=== PATIENT | female | born 1940 | race Caucasian/White ===

== ENCOUNTER 2019-02-13 14:54 | Inpatient (IN) ==
[~2019-02-13 14:54] MED LIST: SODIUM CHLORIDE 0.9% 1000ML 1,000 ML IV ONE
--- NOTE | 2019-02-13 15:14 | History & Physical Report ---
Date of Service February 13, 2019 Assessment & Plan (1) Acute kidney injury: clinically dry will give additional 1 liter bolus then 70cc/hr repeat BMP in the morning monitor UO with hoffmann (2) Rectal bleeding: new occurrence Hb stable at 11 at [facility], it is 10gm here in ED will make NPO after midnight consult Dr. Dorsey to see tomorrow (3) Cirrhosis: ongoing issue on Lasix and Spironolactone will hold these given MARILYN ammonia is 20 bili is 1.0, will get INR in the AM to better determine MELD score has WALDROP according to records will need GI consult, son does not think she has seen GI in [facility]? honestly she appears to be more of a palliative patient she has temporal muscle wasting, profoundly weak and the cirrhosis cannot be fixed unfortunately her son has unclear picture of how sick she really is unsure if it has been explained to him in [facility] (4) Hypotension: likely her baseline BP is in the 90-100 range will monitor closely no signs of shock, lactic acid is 1.4 on admission (5) Asthma: no wheezing, breathing stable on room air continue Advair (6) DM type 2 (diabetes mellitus, type 2): diabetic diet Novolog SS with correction factor 50, no carb coverage for now monitor for hypoglycemia (7) senior care current use of anticoagulant: on Xarelto 20mg daily unclear if she has paroxysmal afib, VTE in past? hold Xarelto for now given rectal bleeding (8) UTI (urinary tract infection): with leukocytosis and some WBC in urine at [place] will start on Rocephin 1gm q24, follow up urine culture from [facility] ED (9) Hypothyroidism: (10) CAD (coronary artery disease): (11) HTN (hypertension): (12) Neuropathy: History of Present Illness Chief Complaint: My backside hurts Primary Care Provider: NO PCP 79 yo female with history of WALDROP causing cirrhosis, CAD, CHF, neuropathy, hypothyroidism and anxiety who was sent to [facility] from [place] ED after she presented their the morning of 02/13 with reported rectal bleeding that was a new issue. Majority of the recent history obtained from records from the ED as well as from her son at the bedside. She is not a permanent resident of a SNF, she normally lives with her son. She has been in a SNF due to weakness and need for rehab, she went there over a week ago after being hospitalized at [place]. Prior to this visit all her care has been at [place] with the [facility] system. The son knows that she has cirrhosis due to fatty liver disease. She has had numerous paracentesis in the past as well as right sided thoracentesis for pleural effusion likely related to the cirrhosis. He says that the patient was doing very poorly the past few weeks. She has been getting weaker, not eating well, not drinking much. He said her care was inadequate at the SNF in his opinion and he was going to get her out of the SNF this morning and take her home but she had reported rectal bleeding. He says that over the past year her health has declined, in the past few months it has dramatically declined. He says he is not ready to lose his mom and he gets choked up talking about it. Asked why he requested a transfer to [facility] since her care has always been at [place] and he said he wanted her to have best care possible, was not pleased with the care she had with [facility]. She has no history of GI bleeding at least to the son's knowledge. The patient denies any abdominal pain and she never vomited. She c/o pain in her backside related to some sacral wounds. She denies any chest pain/pressure, denies dyspnea, denies fever/chills. She admits that she does not eat or drink much, very poor appetite. She was hypotensive in the ED at [place]. She was given a one liter bolus. She had a leukocytosis, Hb was 11, Cr was up at 2 compared to baseline of 1, Na down at 129. CT head was normal. Possible UTI on UA, cul ture was sent. They requested transfer to [facility]. I requested that she be evaluated in the ED, unsure if she would need ICU or PCU. Once here in our ED her BP was improved in the 90-100 systolic range. It was clear that she was cirrhotic, likely pressures always low. She was in no distress. Lactic acid was normal, Hb was 10. She was deemed appropriate for PCU status and was admitted. Allergies Allergy/AdvReac Type Severity Reaction Status Date / Time anastrozole [From Arimidex] Allergy Unknown FAMILY Verified 02/13/19 15:44 UNSURE OF REACTION atorvastatin [From Lipitor] Allergy Unknown FAMILY Verified 02/13/19 15:44 UNSURE OF REACTION metformin Allergy Unknown FAMILY Verified 02/13/19 15:44 UNSURE OF REACTION oxycodone Allergy Unknown FAMILY Verified 02/13/19 15:44 UNSURE OF REACTION pantoprazole [From Protonix] Allergy Unknown FAMILY Verified 02/13/19 15:44 UNSURE OF REACTION rosuvastatin [From Crestor] Allergy Unknown FAMILY Verified 02/13/19 15:44 UNSURE OF REACTION simvastatin [From Zocor] Allergy Unknown FAMILY Verified 02/13/19 15:44 UNSURE OF REACTION ticagrelor [From Brilinta] Allergy Unknown FAMILY Verified 02/13/19 15:44 UNSURE OF REACTION Home Medications Home Medications Medication Instructions Recorded Confirmed Type acetaminophen [Tylenol] 650 mg PO Q4 PRN 02/13/19 02/13/19 History calcium carbonate-vitamin D3 1 tab PO DAILY 02/13/19 02/13/19 History [Calcium 600 + D(3)] carvedilol 3.125 mg PO BID 02/13/19 02/13/19 History cyanocobalamin (vitamin B-12) 1,000 mcg IM MONTHLY 02/13/19 02/13/19 History diclofenac sodium [Voltaren] 2 g TOPICAL BID PRN 02/13/19 02/13/19 History diphenhydramine-acetaminophen 2 tab PO HS PRN 02/13/19 02/13/19 History [Tylenol PM Extra Strength] docusate sodium 100 mg PO BID 02/13/19 02/13/19 History duloxetine [Cymbalta] 60 mg PO DAILY 02/13/19 02/13/19 History fenofibrate nanocrystallized 145 mg PO DAILY 02/13/19 02/13/19 History fluticasone propion-salmeterol 1 inh INHALATION BID 02/13/19 02/13/19 History [Advair Diskus] fluticasone propionate [Flonase 1 spray INTRANASAL DAILY 02/13/19 02/13/19 History Allergy Relief] furosemide [Lasix] 40 mg PO DAILY 02/13/19 02/13/19 History gabapentin 300 mg PO BID 02/13/19 02/13/19 History gabapentin 600 mg PO HS 02/13/19 02/13/19 History levothyroxine 150 mcg PO DAILY 02/13/19 02/13/19 History loratadine 10 mg PO DAILY PRN 02/13/19 02/13/19 History lorazepam [Ativan] 0.5 mg PO Q12 PRN 02/13/19 02/13/19 History nitroglycerin [Nitrostat] 0.4 mg SUBLINGUAL DIRECTED PRN 02/13/19 02/13/19 History potassium chloride 10 meq PO DAILY 02/13/19 02/13/19 History rivaroxaban [Xarelto] 20 mg PO PM 02/13/19 02/13/19 History spironolactone 200 mg PO DAILY 02/13/19 02/13/19 History Past Med/Surg History Medical History Arthritis Asthma CAD (coronary artery disease) DM type 2 (diabetes mellitus, type 2) H/O myocardial infarction, greater than 8 weeks HTN (hypertension) Heart failure Hypothyroidism WALDROP (nonalcoholic steatohepatitis) Neuropathy Surgical History S/P cholecystectomy S/P hysterectomy S/P left mastectomy Family History Other Diabetes Hypertension Social History Preferred Language: Surinamese Communication Ability: 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 Beliefs That Will Affect Care: None Current Living Situation: Family Current Living Situation Comment: lives with son Other Information That Helps Us Care for You: No Feels Safe at Home: Yes Safety Concerns: Feels Safe At This Time Smoking Status: Former smoker Hx Alcohol Use: No Hx Substance Use: No Review of Systems Review of Systems: All systems reviewed & are unremarkable except as noted in HPI & below Constitutional: + fatigue, + weakness and + anorexia; no fever, no chills and no sweats Respiratory: no cough, no dyspnea and no wheezing Cardiovascular: + edema; no chest pain, no palpitations and no syncope Gastrointestinal: + early satiety and + blood in stools; no abdominal pain, no nausea, no vomiting, no constipation, no diarrhea/loose stools and no melena Genitourinary: no dysuria Musculoskeletal: + back pain and + joint pain (diffuse) Integumentary: + skin ulcer (reported ulcers on sacrum) Neurologic: + confusion Psychiatric: + confusion and + hallucinations (reaching out for things) Physical Exam Constitutional: well developed, + cachectic (temporal muscle wasting), + frail appearing, cooperative and + malnourished; not in distress and not diaphoretic Eyes: PERRL, conjunctivae normal, anicteric sclerae ENMT: external ear and nose normal, oropharynx normal Neck: trachea midline, no thyromegaly Respiratory: normal respiratory effort, lungs clear to auscultation (decreased in bases) Cardiovascular: Rate/Rhythm: regular rate and regular rhythm Heart Sounds: normal S1 and normal S2; no murmur Extremities: normal capillary refill and + edema Gastrointestinal (Abdomen): Inspection/Auscultation: + abdomen distended and normal bowel sounds Percussion/Palpation: abdomen soft, + ascites and + tympanic to percussion; abdomen nontender Musculoskeletal: Head/Neck/Chest: normocephalic and head atraumatic Extremities: + limited ROM of extremities, + abnormal strength (cannot stand, cannot transfer independently) and + muscle atrophy Skin: no rashes, warm and dry Neurologic: patellar DTR's 2+ bilat, sensation intact and PERRL, EOMI, accommodation nl, no face palsy, no dysarthria Psychiatric: Orientation: alert, oriented to person and cooperative; + not oriented to place and + not oriented to time Hallucinations: + visual hallucinations (reaching out for things) Cognition: + recent memory not i ntact Estimated Intelligence: + below average estimated intelligence Lymphatic: no cervical or axillary lymphadenopathy Results & Data Vital Signs (Past 12 Hours) Vital Signs Temp Pulse Resp BP Pulse Ox 02/13/19 15:01 36.5 C 63 16 109/59 L 94 Laboratory Results Laboratory Results - last 24 hr 02/13/19 02/13/19 02/13/19 16:51 16:51 16:52 WBC 15.19 H RBC 3.59 L Hgb 10.4 L Hct 31.2 L MCV 86.9 MCH 29.0 MCHC 33.3 RDW Std Deviation 48.0 H RDW Coeff of Mariama 15.1 H Plt Count 121 L MPV 9.4 Immature Gran % (Auto) 1.9 Neut % (Auto) 78.2 Lymph % (Auto) 4.1 [place] % (Auto) 14.0 Eos % (Auto) 1.7 Baso % (Auto) 0.1 Immature Gran # (Auto) 0.29 H Neut # (Auto) 11.87 H Lymph # (Auto) 0.62 L [place] # (Auto) 2.13 H Eos # (Auto) 0.26 Baso # (Auto) 0.02 Sodium 131 L Potassium 4.7 Chloride 101 Carbon Dioxide 22 Anion Gap 8.0 BUN 62 H Creatinine 2.10 H Est Cr Clr Drug Dosing 19.1 Est GFR ( Amer) 25.3 Est GFR (Non-Af Amer) 21.8 BUN/Creatinine Ratio 29.5 H Glucose 95 POC Glucose Lactate 1.4 Calcium 9.3 Total Bilirubin 1.0 AST 11 L ALT 7 L Alkaline Phosphatase 71 Ammonia Troponin I < 0.015 Total Protein 4.6 L Albumin 1.7 L Globulin 2.9 Albumin/Globulin Ratio 0.6 L Nasal Screen MRSA (PCR) 02/13/19 02/13/19 02/13/19 18:01 18:19 20:20 WBC RBC Hgb Hct MCV MCH MCHC RDW Std Deviation RDW Coeff of Mariama Plt Count MPV Immature Gran % (Auto) Neut % (Auto) Lymph % (Auto) [place] % (Auto) Eos % (Auto) Baso % (Auto) Immature Gran # (Auto) Neut # (Auto) Lymph # (Auto) [place] # (Auto) Eos # (Auto) Baso # (Auto) Sodium Potassium Chloride Carbon Dioxide Anion Gap BUN Creatinine Est Cr Clr Drug Dosing Est GFR ( Amer) Est GFR (Non-Af Amer) BUN/Creatinine Ratio Glucose POC Glucose 76 69 L* Lactate Calcium Total Bilirubin AST ALT Alkaline Phosphatase Ammonia 20.0 Troponin I Total Protein Albumin Globulin Albumin/Globulin Ratio Nasal Screen MRSA (PCR) 02/13/19 02/13/19 20:44 Unknown WBC RBC Hgb Hct MCV MCH MCHC RDW Std Deviation RDW Coeff of Mariama Plt Count MPV Immature Gran % (Auto) Neut % (Auto) Lymph % (Auto) [place] % (Auto) Eos % (Auto) Baso % (Auto) Immature Gran # (Auto) Neut # (Auto) Lymph # (Auto) [place] # (Auto) Eos # (Auto) Baso # (Auto) Sodium Potassium Chloride Carbon Dioxide Anion Gap BUN Creatinine Est Cr Clr Drug Dosing Est GFR ( Amer) Est GFR (Non-Af Amer) BUN/Creatinine Ratio Glucose POC Glucose 95 Lactate Calcium Total Bilirubin AST ALT Alkaline Phosphatase Ammonia Troponin I Total Protein Albumin Globulin Albumin/Globulin Ratio Nasal Screen MRSA (PCR) Positive A Code Status & VTE Plan Code Status Full code, discussed with patient who stated her wishes and confirmed by her son VTE Prophylaxis Plan VTE Prophylaxis will be ordered: Yes Reason for no VTE drug order: Contraindicated (rectal bleeding) PG Care Time/CCT Total # of Minutes Spent Total Time Spent: 80 Total Time Spent with Patient: Total time spent is greater than 50% in coordination of care (as documented) at patient's floor/unit and/or counseling patient:
[2019-02-13 17:02] LABS: Hematocrit (blood only) 31.2 % (37-47); Hemoglobin 10.4 g/dL (12.0-16.0); Mean Corpuscular Hgb Conc 33.3 g/dL (32-36); Mean Corpuscular Volume 86.9 fL (80-100); Mean Platelet Volume 9.4 fL (7.4-10.4); Platelet Count 121 K/uL (130-400); RDW Coefficient of Variation 15.1 % (11.5-14.5); Red Blood Count 3.59 M/uL (4.2-5.4); White Blood Count 15.19 K/uL (4.8-10.8)
[2019-02-13 17:19] LABS: Alanine Aminotransferase 7 U/L (12-78); Albumin Level 1.7 gm/dl (3.4-5.0); Aspartate Aminotransferase 11 U/L (15-37); BUN Creatinine Ratio 29.5 (10-20); Blood Urea Nitrogen 62 mg/dl (7-18); Calcium 9.3 mg/dl (8.5-10.1); Carbon Dioxide 22 mmol/L (21-32); Chloride 101 mmol/L (98-107); Creatinine Clr Calc Pharmacy 19.1 ml/min; Est GFR (African American) 25.3; Est GFR (Non-African American) 21.8; Glucose 95 mg/dl (70-99); Potassium 4.7 mmol/L (3.5-5.1); Sodium 131 mmol/L (136-145)
[2019-02-13 17:24] LABS: Albumin Globulin Ratio 0.6 (0.9-2); Alkaline Phosphatase 71 U/L (45-117); Globulin 2.9 gm/dl (2.5-4.0); Total Protein 4.6 gm/dl (6.4-8.2); Troponin I < 0.015 ng/ml (0-0.045)
[2019-02-13 17:28] LABS: Basophils # (auto) 0.02 K/uL (0-0.2); Basophils % (auto) 0.1 %; Eosinophils # (auto) 0.26 K/uL (0-0.5); Eosinophils % (auto) 1.7 %; Immature Granulocytes # (auto) 0.29 K/uL (0.00-0.02); Immature Granulocytes % (auto) 1.9 %; Lymphocytes # (auto) 0.62 K/uL (1.2-3.4); Lymphocytes % (auto) 4.1 %; Monocytes # (auto) 2.13 K/uL (0.11-0.59); Neutrophils # (auto) 11.87 K/uL (1.4-6.5); Neutrophils % (auto) 78.2 %
[2019-02-13] MEDS ORDERED: ONDANSETRON INJ 2 MG/ML 2 ML VIAL IV PRN (17:54)
[2019-02-13] MEDS: PATIENT'S ALLERGY INFO NEEDS ENTERED SCH ×3 (17:57→17:59)
[2019-02-13] MEDS: SODIUM CHLORIDE 0.9% 1000ML 1,000 ML IV SCH (18:00)
[2019-02-13] MEDS: DEXTROSE 50% 50 ML SYRINGE IV PRN (20:30)
[2019-02-13] MEDS ORDERED: CARBOHYDRATES FOR HYPOGLYCEMIA PO PRN ×2 (20:30→21:30)
[2019-02-13] MEDS ORDERED: GLUCAGON FOR INJ 1 MG VIAL IM PRN (20:30)
[2019-02-13] MEDS ORDERED: GLUCOSE 10 TABS/TUBE PO PRN ×2 (20:30→21:30)
[2019-02-13] MEDS ORDERED: GLUCOSE 40% GEL 15 GM TUBE PO PRN ×2 (20:30→21:30)
[2019-02-13] MEDS ORDERED: GLUCAGON FOR INJ 1 MG VIAL SQ PRN (21:30)
[2019-02-13] MEDS ORDERED: DEXTROSE 50% 50 ML SYRINGE IV PRN (21:30)
[2019-02-13] MEDS: FLUTICASONE/SALMETEROL 250/50 (ADVAIR) 14 PUFF/1 INHALER INH SCH (21:34)
[2019-02-13] MEDS: GABAPENTIN 600 MG TAB PO SCH (21:34)
[2019-02-13] MEDS: INSULIN ASPART 100 UNITS/ML 3 ML PEN SC SCH (21:35)
[2019-02-13] MEDS: cefTRIAXone SODIUM 1,000 MG in DEXTROSE 5% 50 ML IV SCH (21:48)
[2019-02-14 00:57] LABS: Hematocrit (blood only) 35.8 % (37-47); Hemoglobin 12.1 g/dL (12.0-16.0)
[2019-02-14] MEDS: LEVOTHYROXINE SODIUM 150 MCG TABLET PO SCH (06:31)
[2019-02-14 07:44] LABS: Basophils # (auto) 0.01 K/uL (0-0.2); Eosinophils % (auto) 1.7 %; Hemoglobin 12.2 g/dL (12.0-16.0); Immature Granulocytes # (auto) 0.29 K/uL (0.00-0.02); Immature Granulocytes % (auto) 1.3 %; Lymphocytes # (auto) 0.68 K/uL (1.2-3.4); Lymphocytes % (auto) 2.9 %; Mean Corpuscular Hemoglobin 29.3 pg (25-34); Mean Corpuscular Hgb Conc 33.9 g/dL (32-36); Mean Corpuscular Volume 86.3 fL (80-100); Mean Platelet Volume 9.2 fL (7.4-10.4); Monocytes # (auto) 2.53 K/uL (0.11-0.59); Monocytes % (auto) 10.9 %; Neutrophils # (auto) 19.28 K/uL (1.4-6.5); Neutrophils % (auto) 83.2 %; Platelet Count 147 K/uL (130-400); RDW Coefficient of Variation 15.3 % (11.5-14.5); RDW Standard Deviation 48.8 fL (36.4-46.3); Red Blood Count 4.17 M/uL (4.2-5.4); White Blood Count 23.19 K/uL (4.8-10.8)
[2019-02-14 07:47] LABS: INR 1.3 (0.9-1.1); Prothrombin Time 13.5 Seconds (9.0-12.0)
--- NOTE | 2019-02-14 08:10 | Hospitalist Progress Note ---
Date of Service February 14, 2019 Assessment & Plan (1) Leukocytosis: Patient continues have leukocytosis. Concern that source may perhaps be either infected ascitic fluid, or UTI. Will obtain procalcitonin. Procalcitonin may be falsely elevated due to elevated creatinine. Will obtain ultrasound of abdomen. May perhaps consult interventional radiology for paracentesis. Awaiting input from gastroenterology (2) Acute kidney injury: This is a 70-year-old female with multiple comorbidities, her main issue is a cirrhosis. This admission is likely complication of her cirrhosis. Patient was admitted because she had acute kidney injury. Her creatinine was above 2. Currently repeating BMP. Results are still pending WILL CONTINUE IVF monitor UO with hoffmann (3) Rectal bleeding: new occurrence Hemoglobin has been relatively stable. awaiting input from GI. (4) Cirrhosis: honestly she appears to be more of a palliative patient she has temporal muscle wasting, profoundly weak and the cirrhosis cannot be fixed unfortunately her son has unclear picture of how sick she really is unsure if it has been explained to him in [facility] system Will discuss with son about possibly obtaining a palliative care consult. (5) Hypotension: likely her baseline BP is in the 90-100 range will monitor closely no signs of shock, lactic acid is 1.4 on admission may consider adding midodrine. (6) Asthma: no wheezing, breathing stable on room air continue Advair (7) DM type 2 (diabetes mellitus, type 2): diabetic diet Novolog SS with correction factor 50, no carb coverage for now monitor for hypoglycemia (8) senior care current use of anticoagulant: on Xarelto 20mg daily unclear if she has paroxysmal afib, VTE in past? hold Xarelto for now given rectal bleeding (9) UTI (urinary tract infection): with leukocytosis and some WBC in urine at [place] will start on Rocephin 1gm q24, follow up urine culture from [place] ED (10) Hypothyroidism: Patient on levothyroxine 150 mg p.o. daily (11) CAD (coronary artery disease): Patient only takes carvedilol fenofibrate Xarelto. Currently medications are on hold due to rectal bleeding and low blood pressure (12) HTN (hypertension): BP has rito low. Will monitor (13) Neuropathy: Patient complaint of bilateral lower extremity pain. Patient cannot elaborate. Patient appears to be lethargic so will continue to monitor this and will hold off giving additional pain medication which could make patient more lethargic. Subjective This is a pleasant 79-year-old female with history of cirrhosis. Patient appears to be lethargic and confused. Patient does awaken with verbal stimuli. But does not provide a well detailed history. Patient states that she has some pain in her feet but cannot elaborate. It appears patient does not know where she is either as she has been questioned where she is that she states she is in the house or hosp- but then stops talking and closes her eyes. Unsure if she is trying to say hospital. Review of Systems Review of Systems: Unobtainable due to reduced consciousness Physical Exam Physical Exam: Constitutional: well developed, + cachectic (temporal muscle wasting), + frail appearing, cooperative and + malnourished; not in distress and not diaphoretic Eyes: PERRL, conjunctivae normal, anicteric sclerae ENMT: external ear and nose normal, oropharynx normal Neck: trachea midline, no thyromegaly Respiratory: normal respiratory effort, lungs clear to auscultation (decreased in bases) Cardiovascular: Rate/Rhythm: regular rate and regular rhythm Heart Sounds: normal S1 and normal S2; no murmur Extremities: normal capillary refill and + edema Gastrointestinal (Abdomen): Inspection/Auscultation: + abdomen distended and normal bowel sounds Percussion/Palpation: abdomen soft, + ascites and + tympanic to percussion; abdomen nontender Musculoskeletal: Head/Neck/Chest: normocephalic and head atraumatic Extremities: + limited ROM of extremities, + abnormal strength (cannot stand, cannot transfer independently) and + muscle atrophy Skin: no rashes, warm and dry Neurologic: patellar DTR's 2+ bilat, sensation intact and PERRL, EOMI, accommodation nl, no face palsy, no dysarthria Psychiatric: Orientation: alert, oriented to person and cooperative; + not oriented to place and + not oriented to time Cognition: + recent memory not intact Estimated Intelligence: + below average estimated intelligence Lymphatic: no cervical or axillary lymphadenopathy Results & Data Vital Signs (Past 12 Hours) Vital Signs Temp Pulse Pulse Resp BP Pulse Ox 02/14/19 07:53 36.7 C 77 21 90/52 L 99 02/14/19 03:17 36.7 C 71 17 87/50 L 96 02/14/19 00:00 64 11/03/19 23:34 36.3 C L 70 13 96/56 L 98 PG Care Time/CCT Total # of Minutes Spent Total Time Spent with Patient: Total time spent is greater than 50% in coordination of care (as documented) at patient's floor/unit and/or counseling patient:
[2019-02-14 08:15] LABS: BUN Creatinine Ratio 28.9 (10-20); Calcium 9.8 mg/dl (8.5-10.1); Creatinine Clr Calc Pharmacy 18.6 ml/min; Est GFR (African American) 25.3; Est GFR (Non-African American) 21.8; Potassium 4.8 mmol/L (3.5-5.1)
[2019-02-14 08:18] LABS: Albumin Globulin Ratio 0.6 (0.9-2); Bilirubin,Total 1.1 mg/dl (0.2-1); Globulin 3.4 gm/dl (2.5-4.0); Total Protein 5.4 gm/dl (6.4-8.2)
[2019-02-14] MEDS: INSULIN ASPART 100 UNITS/ML 3 ML PEN SC SCH ×4 (08:40→20:46)
--- NOTE | 2019-02-14 09:05 | Gastrointestinal Consultation ---
Date of Consultation February 14, 2019 Assessment & Plan (1) Cirrhosis: MELD 21. Receives care from [facility]. Bleak overall medical picture. -US pending to assess ascites -Please obtain external GI records -2 gm sodium diet -Continue Lasix & Aldactone as tolerated in the setting of hypotension and likely infection -I do not believe that we can offer different services than her primary GI at this point. She should continue to follow-up with them as an outpatient should it be decided to continue with conventional medical treatment. -Given her other medical comorbidities, advanced age, ineligibility for extensive hepatology intervention, and given cirrhosis is a progressive c ondition that will not improve, would strongly urge patient's son to consider a palliative care consult in effort to prioritize the quality of life for this patient. (2) Rectal bleeding: H/H stable at 12.0/36.0. On oral anticoagulation at home. No records of previous endoscopic evaluation available. No upper GI bleeding. -Given WBC count of 23,000 and hypotension, would defer endoscopic evaluation until her possible infection can be addressed. I would request that we please obtain her previous endoscopic evaluations that have likely been performed for variceal assessment. Continue to monitor H/H closely and monitor for large volume active GI bleeding. We will continue to reassess and react as appropriate with respect to her medical comorbidities. Thank you for allowing us to participate in the care of this patient. If you should have any further questions or concerns, do not hesitate to contact us at [phone] or [phone]. Present on Admission?: Yes Supervising Physician Co-Signing Physician Notes Agree with JONELLE Bhakta Gen: Chronic ill-appearing, sedated, but arousable Abd: Soft, NT, ND Continue current therapy and supportive care Consider palliative care consult. History of Present Illness Reason for Consultation: Cirrhosis, rectal bleeding Attending Physician: Taran Funes History of Present Illness Patient is a 79 yo female with a PMH of HLD, DM2, CAD, hypothyroidism, chronic oral anticoagulation with unclear reason why, and reported WALDROP cirrhosis. The patient was laterally transferred from a [facility] facility to [facility] at the request of her son. The patient's son is not pres ent during my evaluation today and the limited information obtained has been from records and chart review. It appears that the patient has been in a SNF recently due to weakness. She had a hemoglobin of 11 gm at [facility] and it was noted to be 10 gm upon arrival to [facility]. Her current H/H is now 12/36.0. She sees GI in [place] for her [place] cirrhosis. I do not have outpatient records but it is noted in the chart that she requires frequent paracentesis. She appears to be managed on Aldactone 200 mg daily & Lasix 40 mg daily. Her ammonia is within normal limits, bili is 1.1, INR 1.3, LFTs wnl, WBC count is 23,190, she is hypotensive, with a suspected positive UA (culture pending). Her current MELD score is 21. GI has been consulted for cirrhosis & rectal bleeding. The patient reportedly has had bright red blood per rectum. I do not have records of her outpatient notes or endoscopies. The patient is not oriented appropriately. She appears chronically ill. She has temporal wasting. She is unable to provide me any complaints, history, or further information. She has mild ascites noted on exam with BLLE edema. An abdominal US is pending. Reportedly she lives with her son. Allergies Allergy/AdvReac Type Severity Reaction Status Date / Time anastrozole [From Arimidex] Allergy Unknown FAMILY Verified 02/13/19 15:44 UNSURE OF REACTION atorvastatin [From Lipitor] Allergy Unknown FAMILY Verified 02/13/19 15:44 UNSURE OF REACTION metformin Allergy Unknown FAMILY Verified 02/13/19 15:44 UNSURE OF REACTION oxycodone Allergy Unknown FAMILY Verified 02/13/19 15:44 UNSURE OF REACTION pantoprazole [From Protonix] Allergy Unknown FAMILY Verified 02/13/19 15:44 UNSURE OF REACTION rosuvastatin [From Crestor] Allergy Unknown FAMILY Verified 02/13/19 15:44 UNSURE OF REACTION simvastatin [From Zocor] Allergy Unknown FAMILY Verified 02/13/19 15:44 UNSURE OF REACTION ticagrelor [From Brilinta] Allergy Unknown FAMILY Verified 02/13/19 15:44 UNSURE OF REACTION Home Medications Home Medications Medication Instructions Recorded Confirmed Type acetaminophen [Tylenol] 650 mg PO Q4 PRN 02/13/19 02/13/19 History calcium carbonate-vitamin D3 1 tab PO DAILY 02/13/19 02/13/19 History [Calcium 600 + D(3)] carvedilol 3.125 mg PO BID 02/13/19 02/13/19 History cyanocobalamin (vitamin B-12) 1,000 mcg IM MONTHLY 02/13/19 02/13/19 History diclofenac sodium [Voltaren] 2 g TOPICAL BID PRN 02/13/19 02/13/19 History diphenhydramine-acetaminophen 2 tab PO HS PRN 02/13/19 02/13/19 History [Tylenol PM Extra Strength] docusate sodium 100 mg PO BID 02/13/19 02/13/19 History duloxetine [Cymbalta] 60 mg PO DAILY 02/13/19 02/13/19 History fenofibrate nanocrystallized 145 mg PO DAILY 02/13/19 02/13/19 History fluticasone propion-salmeterol 1 inh INHALATION BID 02/13/19 02/13/19 History [Advair Diskus] fluticasone propionate [Flonase 1 spray INTRANASAL DAILY 02/13/19 02/13/19 History Allergy Relief] furosemide [Lasix] 40 mg PO DAILY 02/13/19 02/13/19 History gabapentin 300 mg PO BID 02/13/19 02/13/19 History gabapentin 600 mg PO HS 02/13/19 02/13/19 History levothyroxine 150 mcg PO DAILY 02/13/19 02/13/19 History loratadine 10 mg PO DAILY PRN 02/13/19 02/13/19 History lorazepam [Ativan] 0.5 mg PO Q12 PRN 02/13/19 02/13/19 History nitroglycerin [Nitrostat] 0.4 mg SUBLINGUAL DIRECTED PRN 02/13/19 02/13/19 History potassium chloride 10 meq PO DAILY 02/13/19 02/13/19 History rivaroxaban [Xarelto] 20 mg PO PM 02/13/19 02/13/19 History spironolactone 200 mg PO DAILY 02/13/19 02/13/19 History Patient History Family History Other Diabetes Hypertension Social History Preferred Language: Welsh Communication Ability: Effective 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 Operator 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: No Beliefs That Will Affect Care: None Current Living Situation: Family Current Living Situation Comment: lives with son Other Information That Helps Us Care for You: No Feels Safe at Home: Yes Safety Concerns: Feels Safe At This Time Smoking Status: Former smoker Hx Alcohol Use: No Hx Substance Use: No Review of Systems Review of Systems: Unobtainable due to cognitive status Physical Exam Constitutional: + ill appearing and + frail appearing temporal wasting Eyes: + anicteric sclerae Neck: normal visual inspection Respiratory: no respiratory distress and no labored breathing Auscultation: lungs clear to auscultation bilaterally Cardiovascular: Rate/Rhythm: regular rate and regular rhythm Gastrointestinal (Abdomen): Inspection/Auscultation: normal bowel sounds Percussion/Palpation: + abdomen tender and + ascites Musculoskeletal: BLLE edema Skin: scattered ecchymosis Neurologic: confused Psychiatric: Orientation: alert not oriented appropriately Results & Data Vital Signs (Past 12 Hours) Vital Signs Temp Pulse Pulse Resp BP Pulse Ox 02/14/19 08:52 77 02/14/19 07:53 36.7 C 77 21 90/52 L 99 02/14/19 03:17 36.7 C 71 17 87/50 L 96 02/14/19 00:00 64 02/13/19 23:34 36.3 C L 70 13 96/56 L 98 PG Care Time/CCT Total # of Minutes Spent Total Time Spent with Patient: Total time spent is greater than 50% in coordination of care (as documented) at patient's floor/unit and/or counseling patient: (1) Cirrhosis Hepatic cirrhosis type: other cirrhosis Qualified Code(s): K74.69 - Other cirrhosis of liver
[2019-02-14] MEDS: GABAPENTIN 300 MG CAP PO SCH ×2 (10:09→13:54)
[2019-02-14] MEDS: FLUTICASONE/SALMETEROL 250/50 (ADVAIR) 14 PUFF/1 INHALER INH SCH ×2 (10:09→19:53)
[2019-02-14] MEDS: FLUTICASONE PROPIONATE NA SPR 16 GM BTL SCH (10:09)
[2019-02-14] MEDS: DULOXETINE HCL 60 MG CAP PO SCH (10:09)
--- NOTE | 2019-02-14 10:59 | Ultrasound Report ---
US abdomen ltd ascites CLINICAL HISTORY: Ascites evaluation COMPARISON STUDY: No previous studies for comparison. FINDINGS: A four-quadrant abdominal survey was performed. There is moderate ascites. IMPRESSION: Moderate ascites. Electronically signed by: Santo Melara M.D. 02/14/2019 10:58 AM
[2019-02-14] MEDS: SODIUM CHLORIDE 0.9% 1000ML 1,000 ML IV SCH (11:34)
[2019-02-14] MEDS: DEXTROSE 50% 50 ML SYRINGE IV PRN (11:50)
[2019-02-14] MEDS: D5W AND LACTATED RINGERS 1,000 ML IV SCH (12:00)
[2019-02-14] MEDS: GABAPENTIN 600 MG TAB PO SCH (19:46)
[2019-02-14] MEDS: cefTRIAXone SODIUM 1,000 MG in DEXTROSE 5% 50 ML IV SCH (22:15)
[2019-02-15] MEDS: D5W AND LACTATED RINGERS 1,000 ML IV SCH ×2 (01:11→12:41)
[2019-02-15] MEDS: LEVOTHYROXINE SODIUM 150 MCG TABLET PO SCH (06:28)
[2019-02-15] MEDS: FLUTICASONE PROPIONATE NA SPR 16 GM BTL SCH (08:28)
[2019-02-15] MEDS: FLUTICASONE/SALMETEROL 250/50 (ADVAIR) 14 PUFF/1 INHALER INH SCH ×2 (08:28→22:15)
[2019-02-15] MEDS: GABAPENTIN 300 MG CAP PO SCH ×2 (08:28→13:10)
[2019-02-15] MEDS: DULOXETINE HCL 60 MG CAP PO SCH (08:29)
[2019-02-15] MEDS: INSULIN ASPART 100 UNITS/ML 3 ML PEN SC SCH ×4 (08:30→20:08)
[2019-02-15] MEDS: LANSOPRAZOLE 30 MG SOLTAB PO SCH ×2 (09:50→20:08)
--- NOTE | 2019-02-15 10:04 | History & Physical Bridge Note ---
Date of Service February 15, 2019 History & Physical Bridge Note Await results of labs from this AM including CBC, CMP, PT/INR. Pending results, may order a paracentesis with fluid studies to exclude SBP. I would like to review her previous images and fluid studies. Patient is unable to consent/agree to procedures at present, and I would await input from son/palliative care regarding goals of care. I did personally contact [facility] and they will release her records to us if the POA signs a record release. Please obtain this from son when he is present and fax to [facility] (Attention: Murali, STAT request). The phone number is [phone] and they can provide the fax #.
[2019-02-15 11:46] LABS: Hematocrit (blood only) 39.5 % (37-47); Hemoglobin 13.4 g/dL (12.0-16.0); Mean Corpuscular Hemoglobin 29.5 pg (25-34); Mean Corpuscular Hgb Conc 33.9 g/dL (32-36); Mean Platelet Volume 9.3 fL (7.4-10.4); Platelet Count 113 K/uL (130-400); RDW Coefficient of Variation 15.6 % (11.5-14.5); RDW Standard Deviation 49.5 fL (36.4-46.3); Red Blood Count 4.54 M/uL (4.2-5.4); White Blood Count 34.95 K/uL (4.8-10.8)
[2019-02-15 11:47] LABS: Basophils # (auto) 0.04 K/uL (0-0.2); Basophils % (auto) 0.1 %; Eosinophils # (auto) 0.23 K/uL (0-0.5); Eosinophils % (auto) 0.7 %; INR 1.3 (0.9-1.1); Lymphocytes # (auto) 0.62 K/uL (1.2-3.4); Lymphocytes % (auto) 1.8 %; Monocytes # (auto) 1.71 K/uL (0.11-0.59); Monocytes % (auto) 4.9 %; Neutrophils # (auto) 31.65 K/uL (1.4-6.5); Neutrophils % (auto) 90.5 %; Prothrombin Time 12.9 Seconds (9.0-12.0)
[2019-02-15 11:56] LABS: Albumin Globulin Ratio 0.6 (0.9-2); BUN Creatinine Ratio 30.9 (10-20); Bilirubin,Total 1.1 mg/dl (0.2-1); Creatinine Clr Calc Pharmacy 20.8 ml/min; Est GFR (African American) 28.9; Globulin 3.6 gm/dl (2.5-4.0); Potassium 5.1 mmol/L (3.5-5.1); Total Protein 5.6 gm/dl (6.4-8.2)
[2019-02-15] MEDS ORDERED: cefTRIAXone SODIUM 1,000 MG in DEXTROSE 5% 50 ML IV ONE (12:30)
--- NOTE | 2019-02-15 15:08 | Ultrasound Report ---
US paracentesis abd w/image CLINICAL HISTORY: 79 years-old Female presenting with leukocytosis/ ascites. COMPARISON: None. PROCEDURE: The procedure and its risks, benefits, and alternatives were discussed with the patient's healthcare decision maker by telephone (son Camacho Mg), and written informed consent was obtained. A timeout w as performed to confirm patient identity. Limited ultrasound of the abdomen was performed to determine a safe needle entry site, and the site w as marker for paracentesis. The right lower quadrant was prepped and draped in the usual aseptic fashion. 1% Lidocaine was used f or local anesthesia. A paracentesis needle-sheath was inserted into the peritoneal space using ultrasound guidance. The ne edle was removed and the sheath was connected to tubing and a vacuum suction device. A total of 1.9 L of clear yellow ascites was aspirated. The sheath was removed, and a dressing applied. The patient tolerated the procedure well. No immediate complications. IMPRESSION: Ultrasound-guided diagnostic and therapeutic paracentesis with aspiration of 1.9 L of ascites. Electronically signed by: Elvis Rojas M.D. 02/15/2019 3:07 PM
[2019-02-15 15:44] LABS: Albumin Peritoneal Fluid 0.6 g/dl; Glucose Peritoneal Fluid 156 mg/dl
[2019-02-15 15:51] LABS: Amylase Peritoneal Fluid 5 U/L; LDH Peritoneal Fluid 33 U/L; Lipase Peritoneal Fluid < 10 U/L; Total Protein Peritoneal Fluid 1.1 g/dl; Triglyceride Peritoneal Fluid 9 mg/dl
[2019-02-15 16:03] LABS: Appearance Peritoneal Fluid CLEAR; Color Peritoneal Fluid YELLOW; Eosinophils, Fluid 0 %; Lymphocytes, Fluid 8 %; Mono,Macrophage,Mesothelial 26 %; Neutrophils, Fluid 66 %; RBC Peritoneal Fluid (A) < 3000 /uL; WBC Peritoneal Fluid (A) 530 /ul (0-300)
--- NOTE | 2019-02-15 16:17 | Hospitalist Progress Note ---
Date of Service February 15, 2019 Assessment & Plan (1) Leukocytosis: WBC continue to rise despite antibiotics. Patient was currently being treated for UTI with ceftriaxone 1 gr IV daily will increase to 2gr IV daily Patient continues have leukocytosis. Concern that source may perhaps be either infected ascitic fluid (probable spontaneous bacterial peritonitis), or UTI. Procalcitonin is elevated. Procalcitonin may be falsely elevated due to elevated creatinine. U/S of abdomen shows ascitic fluid. will obtain consult with interventional radiology for paracenthesis and obtain culture. The issue is that patient has received antibiotics so cultures may be falsely negative Gastro has been seeing patient and it appears patient has a poor prognosis due to cirrhosis and MELD score of 21. May also consider possiblity of c diff given diarrhea. will order c diff testing. (2) Acute kidney injury: This is a 70-year-old female with multiple comorbidities, her main issue is a cirrhosis. This admission is likely complication of her cirrhosis. Patient was admitted because she had acute kidney injury. Her creatinine was above 2. Has improved to 1.88 (3) Rectal bleeding: new occurrence Hemoglobin has been relatively stable. (4) Cirrhosis: honestly she appears to be more of a palliative patient she has temporal muscle wasting, profoundly weak and the cirrhosis cannot be fixed unfortunately her son has unclear picture of how sick she really is unsure if it has been explained to him in [facility] Informed son about poor prognosis. will obtain palliative care consult. (5) Hypotension: likely her baseline BP is in the 90-100 range will monitor closely no signs of shock, lactic acid is 1.4 on admission may consider adding midodrine. 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 hold Xarelto for now given rectal bleeding (9) UTI (urinary tract infection): with leukocytosis and some WBC in urine at [place] antibiotics per above. (10) Hypothyroidism: Patient on levothyroxine 150 mg p.o. daily (11) CAD (coronary artery disease): Patient only takes carvedilol fenofibrate Xarelto. Currently medications are on hold due to rectal bleeding and low blood pressure (12) HTN (hypertension): BP has rito low. Will monitor (13) Neuropathy: Patient complaint of bilateral lower extremity pain. Patient cannot elaborate. Patient appears to be lethargic so will continue to monitor this and will hold off giving additional pain medication which could make patient more lethargic. Subjective 79 yo female is lethargic. Review of Systems Review of Systems: Unobtainable due to cognitive status Physical Exam Physical Exam: Constitutional: well developed, + cachectic (temporal muscle wasting), + frail appearing; lethargic Eyes: PERRL, conjunctivae normal, anicteric sclerae ENMT: external ear and nose normal, oropharynx normal Neck: trachea midline, no thyromegaly Respiratory: normal respiratory effort, lungs clear to auscultation (decreased in bases) Cardiovascular: Rate/Rhythm: regular rate and regular rhythm Heart Sounds: normal S1 and normal S2; no murmur Extremities: normal capillary refill and + edema Gastrointestinal (Abdomen): + abdomen distended, soft, + ascites and + tympanic to percussion; abdomen nontender Musculoskeletal: Head/Neck/Chest: normocephalic and head atraumatic Extremities: + limited ROM of extremities, + muscle atrophy Skin: no rashes, warm and dry Neurologic: patellar DTR's 2+ bilat, sensation intact and PERRL, EOMI, accommodation nl, no face palsy, no dysarthria Psychiatric: lethargic Lymphatic: no cervical or axillary lymphadenopathy Results & Data Vital Signs (Past 12 Hours) Vital Signs Temp Pulse Pulse Resp BP Pulse Ox 02/15/19 15:20 36.8 C 79 18 106/63 100 02/15/19 11:21 36.3 C L 75 17 100/63 98 02/15/19 07:09 36.4 C L 76 16 113/62 95 PG Care Time/CCT Total # of Minutes Spent Total Time Spent with Patient: Total time spent is greater than 50% in coordination of care (as documented) at patient's floor/unit and/or counseling patient: (1) Cirrhosis Hepatic cirrhosis type: other cirrhosis Qualified Code(s): K74.69 - Other cirrhosis of liver
[2019-02-15] MEDS: ACETAMINOPHEN 325 MG TAB PO PRN (20:06)
[2019-02-15] MEDS: GABAPENTIN 600 MG TAB PO SCH (20:07)
[2019-02-15] MEDS: cefTRIAXone SODIUM 2,000 MG in DEXTROSE 5% 50 ML IV SCH (22:15)
[2019-02-15 23:10] LABS: Cdiff Antigen Positive
[2019-02-15 23:12] LABS: Cdiff Toxin A+B Positive Cdiff Toxin (Negative)
[2019-02-16] MEDS: LORazepam 0.5 MG TAB PO PRN (00:23)
[2019-02-16] MEDS: VANCOMYCIN HCL 125 MG/2.5ML SOLN PO SCH ×2 (00:24→06:55)
[2019-02-16] MEDS: RASPBERRY SYRUP 5 ML UDP PO SCH ×4 (00:24→17:05)
[2019-02-16] MEDS: D5W AND LACTATED RINGERS 1,000 ML IV SCH ×2 (02:44→14:21)
[2019-02-16] MEDS: LEVOTHYROXINE SODIUM 150 MCG TABLET PO SCH (06:55)
[2019-02-16] MEDS ORDERED: cefTRIAXone SODIUM 2,000 MG in DEXTROSE 5% 50 ML IV SCH (09:00)
--- NOTE | 2019-02-16 09:05 | Gastroenterology Progress Note ---
Date of Service February 16, 2019 Assessment & Plan (1) Cirrhosis: With possible SBP. MELD at 21. Today's labs are pending. s/p paracentesis on 02/15 with peritoneal WBCs >500. -Continue Ceftriaxone for possible SBP -Follow-up cytology when it returns -Follow blood & urine cultures -Ammonia has been normal, however given persistent confusion despite treatment for her infectious process, add Xifaxan 550 mg BID. -2 gm sodium restricted diet -Continue Lasix & Aldactone as tolerated in the setting of infection -Given age and medical comorbidities, patient would not be an ideal candidate for hepatology interventions -Agree that patient is more ill than previously understood by son; Palliative care consult pending. -Patient has outpatient GI resources in place at [facility]; still awaiting records from their office. Present on Admission?: Yes (2) C. difficile diarrhea: -Continue Vancomycin 125 mg po q 6 hrs -Contact precautions per protocol Present on Admission?: No Supervising Physician Co-Signing Physician Notes Agree with JONELLE Bhakta Patient is a 79 yo female who is chronically ill and is currently hospitalized for multiple issues including cirrhosis, possible SBP, and rectal bleeding. The patient tested positive for C diff yesterday. She has been started on Vanco 125 mg four times daily. She underwent a paracentesis of ascitic fluid yesterday. 1.9 L were removed, unfortunately the fluid studies are not completely sales representative supervisor of the clinical situation as she was on Ceftriaxone for more than 24 hours prior to the paracentesis. Peritoneal WBC count was >500. The patient is afebrile. Her CBC & metabolic panel are pending this AM. There appears to be a pending palliative care consult as well. Patient is alert, but not appropriately oriented. She does not participate in my review of systems today. She does request water. Review of Systems Review of Systems: Unobtainable due to cognitive status Physical Exam Constitutional: + ill appearing Respiratory: normal respiratory effort Cardiovascular: Rate/Rhythm: regular rate and regular rhythm Gastrointestinal (Abdomen): Percussion/Palpation: + abdomen tender and abdomen soft; no ascites Psychiatric: Orientation: alert Results & Data Vital Signs (Past 12 Hours) Vital Signs Temp Pulse Pulse Resp BP Pulse Ox 02/16/19 07:15 36.3 C L 79 17 100/57 L 95 11/06/19 02:31 36.9 C 77 16 106/57 L 95 02/16/19 00:00 79 02/15/19 23:29 36.4 C L 84 20 90/55 L 94 PG Care Time/CCT Total # of Minutes Spent Total Time Spent with Patient: Total time spent is greater than 50% in coordination of care (as documented) at patient's floor/unit and/or counseling patient: (1) Cirrhosis Hepatic cirrhosis type: other cirrhosis Qualified Code(s): K74.69 - Other cirrhosis of liver
[2019-02-16] MEDS: INSULIN ASPART 100 UNITS/ML 3 ML PEN SC SCH ×4 (09:16→21:48)
[2019-02-16] MEDS ORDERED: MIDODRINE HCL 2.5 MG TAB PO STA (09:31)
--- NOTE | 2019-02-16 09:34 | Hospitalist Progress Note ---
Date of Service February 16, 2019 Assessment & Plan (1) Spontaneous bacterial peritonitis: wbc in peritoneal fluid was elevated. culture negative but patient receiving antibioitcs before cultures were drawn.. patient appears to be improving with antibiotics. will monitor will restart diuretics and place on midodrine. (2) Leukocytosis: WBC continue to rise despite antibiotics. Patient was currently being treated for UTI with ceftriaxone 1 gr IV daily now on 2gr IV daily for SBP. Patient continues have leukocytosis. Procalcitonin is elevated. Removed almost 2 liters of ascitic fluid. The issue is that patient has received antibiotics so cultures may be falsely negative Gastro has been seeing patient and it appears patient has a poor prognosis due to cirrhosis and MELD score of 21. (3) C. difficile diarrhea: Placed on vanco 125 on 02/15 overnight. Increased to 250 overnight. (4) Acute kidney injury: This is a 70-year-old female with multiple comorbidities, her main issue is a cirrhosis. This admission is likely complication of her cirrhosis. Patient was admitted because she had acute kidney injury. Her creatinine was above 2. Has improved to 1.7 (5) Rectal bleeding: new occurrence Hemoglobin has been relatively stable. (6) Cirrhosis: honestly she appears to be more of a palliative patient she has temporal muscle wasting, profoundly weak and the cirrhosis cannot be fixed unfortunately her son has unclear picture of how sick she really is unsure if it has been explained to him in [facility] system Informed son about poor prognosis. will obtain palliative care consult. (7) Hypotension: likely her baseline BP is in the 90-100 range will monitor closely no signs of shock, lactic acid is 1.4 on admission may consider adding midodrine. 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 hold Xarelto for now given rectal bleeding (11) UTI (urinary tract infection): with leukocytosis and some WBC in urine at [place] antibiotics per above. (12) Hypothyroidism: Patient on levothyroxine 150 mg p.o. daily (13) CAD (coronary artery disease): Patient only takes carvedilol fenofibrate Xarelto. Currently medications are on hold due to rectal bleeding and low blood pressure (14) HTN (hypertension): BP has rito low. Will monitor (15) Neuropathy: Patient complaint of bilateral lower extremity pain. Patient cannot elaborate. Patient appears to be lethargic so will continue to monitor this and will hold off giving additional pain medication which could make patient more lethargic. Subjective 79 yo female is more awake today. She appears to be somewhat upset as she does not understand why she is in the hospital. She states nothing is wrong with her. Does not provide more history. Review of Systems Review of Systems: All systems reviewed & are unremarkable except as noted in HPI & below Physical Exam Physical Exam: Constitutional: well developed, + cachectic (temporal muscle wasting), + frail appearing; Eyes: PERRL, conjunctivae normal, anicteric sclerae ENMT: external ear and nose normal, oropharynx normal Neck: trachea midline, no thyromegaly Respiratory: normal respiratory effort, lungs clear to auscultation (decreased in bases) Cardiovascular: Rate/Rhythm: regular rate and regular rhythm Heart Sounds: normal S1 and normal S2; no murmur Extremities: normal capillary refill and + edema Gastrointestinal (Abdomen): + abdomen distended, soft, + ascites and + tympanic to percussion; abdomen nontender Musculoskeletal: Head/Neck/Chest: normocephalic and head atraumatic Extremities: + limited ROM of extremities, + muscle atrophy Skin: no rashes, warm and dry Neurologic: patellar DTR's 2+ bilat, sensation intact and PERRL, EOMI, accommodation nl, no face palsy, no dysarthria Psychiatric: AA OX1 Lymphatic: no cervical or axillary lymphadenopath Results & Data Vital Signs (Past 12 Hours) Vital Signs Temp Pulse Pulse Resp BP Pulse Ox 02/16/19 07:15 36.3 C L 79 17 100/57 L 95 02/16/19 02:31 36.9 C 77 16 106/57 L 95 02/16/19 00:00 79 02/15/19 23:29 36.4 C L 84 20 90/55 L 94 PG Care Time/CCT Total # of Minutes Spent Total Time Spent with Patient: Total time spent is greater than 50% in coordination of care (as documented) at patient's floor/unit and/or counseling patient: (1) Cirrhosis Hepatic cirrhosis type: other cirrhosis Qualified Code(s): K74.69 - Other cirrhosis of liver
[2019-02-16] MEDS: FLUTICASONE PROPIONATE NA SPR 16 GM BTL SCH (10:12)
[2019-02-16] MEDS: FLUTICASONE/SALMETEROL 250/50 (ADVAIR) 14 PUFF/1 INHALER INH SCH ×2 (10:12→21:49)
[2019-02-16] MEDS: SPIRONOLACTONE 100 MG TAB PO SCH (10:26)
[2019-02-16] MEDS: FUROSEMIDE 40 MG TAB PO SCH (10:27)
[2019-02-16] MEDS: GABAPENTIN 300 MG CAP PO SCH ×2 (10:27→14:21)
[2019-02-16] MEDS: DULOXETINE HCL 60 MG CAP PO SCH (10:27)
[2019-02-16] MEDS: LANSOPRAZOLE 30 MG SOLTAB PO SCH ×2 (10:28→21:48)
[2019-02-16 11:28] LABS: Hematocrit (blood only) 35.4 % (37-47); Hemoglobin 11.7 g/dL (12.0-16.0); Mean Corpuscular Hemoglobin 28.8 pg (25-34); Mean Corpuscular Hgb Conc 33.1 g/dL (32-36); Mean Corpuscular Volume 87.2 fL (80-100); RDW Coefficient of Variation 15.8 % (11.5-14.5); Red Blood Count 4.06 M/uL (4.2-5.4); White Blood Count 39.44 K/uL (4.8-10.8)
[2019-02-16 11:37] LABS: Albumin Level 1.8 gm/dl (3.4-5.0); BUN Creatinine Ratio 31.2 (10-20); Calcium 8.5 mg/dl (8.5-10.1); Creatinine Clr Calc Pharmacy 21.2 ml/min; Est GFR (African American) 32.7; Est GFR (Non-African American) 28.2; Potassium 4.4 mmol/L (3.5-5.1)
[2019-02-16 11:40] LABS: Basophils # (auto) 0.03 K/uL (0-0.2); Basophils % (auto) 0.1 %; Eosinophils # (auto) 0.36 K/uL (0-0.5); Eosinophils % (auto) 0.9 %; Immature Granulocytes # (auto) 0.37 K/uL (0.00-0.02); Immature Granulocytes % (auto) 0.9 %; Lymphocytes # (auto) 0.81 K/uL (1.2-3.4); Lymphocytes % (auto) 2.1 %; Mean Platelet Volume 9.4 fL (7.4-10.4); Monocytes # (auto) 1.66 K/uL (0.11-0.59); Monocytes % (auto) 4.2 %; Neutrophils # (auto) 36.21 K/uL (1.4-6.5); Neutrophils % (auto) 91.8 %; Platelet Count 93 K/uL (130-400); Platelet Estimate Decreased (Normal); Toxic Granulation 1+
[2019-02-16 11:43] LABS: Albumin Globulin Ratio 0.5 (0.9-2); Bilirubin,Total 0.9 mg/dl (0.2-1); Globulin 3.3 gm/dl (2.5-4.0); Total Protein 5.1 gm/dl (6.4-8.2)
[2019-02-16] MEDS: RIFAXIMIN 550 MG TABLET PO SCH ×2 (11:45→21:48)
[2019-02-16] MEDS: MIDODRINE HCL 2.5 MG TAB PO SCH ×2 (12:11→16:54)
[2019-02-16] MEDS: VANCOMYCIN HCL 250 MG/5 ML SOLN PO SCH ×2 (12:11→17:05)
--- NOTE | 2019-02-16 15:08 | Palliative Care Consultation ---
Date of Consultation February 16, 2019 Assessment & Plan (1) Goals of care, counseling/discussion: -79 year old female patient with PMH WALDROP causing cirrhosis, CAD, CHF, neuropathy, hypothyroidism and anxiety who was sent to [facility] from [place] [facility] after she presented with reported rectal bleeding. Patient does most of her doctoring at [facility], and was recently admitted there. After hospitalization she went to [facility] for rehab. She then presented to [place] ED and son requested patient to be sent to [facility] instead of [facility]. Upon arrival patient had suspected UTI, elevated creatinine of 2.10, hgb 10, ammonia 20, normal LFTs. INR 1.2. Per record, patient does require intermittent paracenteses. We are still waiting for records from [facility]. GI was consulted here in hospital-- given patient's severe leukocytosis and low BP, suspected SBP, will hold off on any endoscopy. Her hgb is stable and no signs of bleeding. Patient's creatinine is improving, now down to 1.70. MELD score is 21-- indicating 20% mortality in 3 months. Patient's upper body is cachectic, severe muscle wasting, albumin 1.8. She had a paracentesis yesterday with 1.9L removed. She is on abx for possible SBP. Mental status somewhat improved today, but prognosis is guarded at this point. Palliative care is consulted to discuss goals fo care. -Met with patient this morning in room 204. She is awake. States she is in [facility]. When asked why she is in hospital, she stated, "These doctors tell me I'm sick, but I don't believe nothing they say!" Asked her to elaborate, but she did not. Patient adamant that she wants to go home. -Called patient's son, Camacho, and spoke over phone. He states that he is now aware of how ill his mother is, but he is hoping to "get some more time with her." He admits that she is declining as far as her strength and overall condition, but thinks some of her decline is from being in a custodial after last hospitalization. Wesly wants to bring patient home as well. -Talked about goals. Camacho wants to bring patient home despite her increasing needs. he would like to continue to bring patient to hospital when needed, continue paracenteses as needed. he asked about an abdominal catheter for drainage and I stated they are used for palliation most of the time, but have major risk for infection which can be fatal. He verbalized understanding. -We did briefly discuss the option of home hospice care and what that would entail for patient. He was appreciative of the information, but promptly stated they are not ready for that. -Given patient's liver disease, increased weakness and dependence for care, malnourished state, and other comorbidities, her prognosis seems quite poor. I would recommend PT/OT as well as field cane scaler to see patient. GI continues to follow. -Palliative care will continue to follow for supportive care as well. (2) Cirrhosis: Hepatic cirrhosis type: other cirrhosis Qualified Code(s): K74.69 - Other cirrhosis of liver (3) Rectal bleeding: (4) Acute kidney injury: (5) Spontaneous bacterial peritonitis: History of Present Illness Attending Physician: Taran Funes History of Present Illness This 79 year old female patient with PMH WALDROP causing cirrhosis, CAD, CHF, neuropathy, hypothyroidism and anxiety who was sent to [facility] from [place] ED after she presented with reported rectal bleeding. Patient does most of her doctoring at [facility], and was recently admitted there. After hospitalization she went to [facility] for rehab. She then presented to [place] ED and son requested patient to be sent to [facility] instead of [facility]. Upon arrival patient had suspected UTI, elevated creatinine of 2.10, hgb 10, ammonia 20, normal LFTs. INR 1.2. Per record, patient does require intermittent paracenteses. We are still waiting for records from [facility]. GI was consulted here in hospital-- given patient's severe leukocytosis and low BP, suspected SBP, will hold off on any endoscopy. Her hgb is stable and no signs of bleeding. Patient's creatinine is improving, now down to 1.70. MELD score is 21-- indicating 20% mortality in 3 months. Patient's upper body is cachectic, severe muscle wasting, albumin 1.8. She had a paracentesis yesterday with 1.9L removed. She is on abx for possible SBP. Mental status somewhat improved today, but prognosis is guarded at this point. Palliative care is consulted to discuss goals fo care. Thank you kindly for this consult. Palliative care team will follow as needed. Allergies Allergy/AdvReac Type Severity Reaction Status Date / Time anastrozole [From Arimidex] Allergy Unknown FAMILY Verified 02/13/19 15:44 UNSURE OF REACTION atorvastatin [From Lipitor] Allergy Unknown FAMILY Verified 02/13/19 15:44 UNSURE OF REACTION metformin Allergy Unknown FAMILY Verified 02/13/19 15:44 UNSURE OF REACTION oxycodone Allergy Unknown FAMILY Verified 02/13/19 15:44 UNSURE OF REACTION pantoprazole [From Protonix] Allergy Unknown FAMILY Verified 02/13/19 15:44 UNSURE OF REACTION rosuvastatin [From Crestor] Allergy Unknown FAMILY Verified 02/13/19 15:44 UNSURE OF REACTION simvastatin [From Zocor] Allergy Unknown FAMILY Verified 02/13/19 15:44 UNSURE OF REACTION ticagrelor [From Brilinta] Allergy Unknown FAMILY Verified 02/13/19 15:44 UNSURE OF REACTION Home Medications Home Medications Medication Instructions Recorded Confirmed Type acetaminophen [Tylenol] 650 mg PO Q4 PRN 02/13/19 02/13/19 History calcium carbonate-vitamin D3 1 tab PO DAILY 02/13/19 02/13/19 History [Calcium 600 + D(3)] carvedilol 3.125 mg PO BID 02/13/19 02/13/19 History cyanocobalamin (vitamin B-12) 1,000 mcg IM MONTHLY 02/13/19 02/13/19 History diclofenac sodium [Voltaren] 2 g TOPICAL BID PRN 02/13/19 02/13/19 History diphenhydramine-acetaminophen 2 tab PO HS PRN 02/13/19 02/13/19 History [Tylenol PM Extra Strength] docusate sodium 100 mg PO BID 02/13/19 02/13/19 History duloxetine [Cymbalta] 60 mg PO DAILY 02/13/19 02/13/19 History fenofibrate nanocrystallized 145 mg PO DAILY 02/13/19 02/13/19 History fluticasone propion-salmeterol 1 inh INHALATION BID 02/13/19 02/13/19 History [Advair Diskus] fluticasone propionate [Flonase 1 spray INTRANASAL DAILY 02/13/19 02/13/19 History Allergy Relief] furosemide [Lasix] 40 mg PO DAILY 02/13/19 02/13/19 History gabapentin 300 mg PO BID 02/13/19 02/13/19 History gabapentin 600 mg PO HS 02/13/19 02/13/19 History levothyroxine 150 mcg PO DAILY 02/13/19 02/13/19 History loratadine 10 mg PO DAILY PRN 02/13/19 02/13/19 History lorazepam [Ativan] 0.5 mg PO Q12 PRN 02/13/19 02/13/19 History nitroglycerin [Nitrostat] 0.4 mg SUBLINGUAL DIRECTED PRN 02/13/19 02/13/19 History potassium chloride 10 meq PO DAILY 02/13/19 02/13/19 History rivaroxaban [Xarelto] 20 mg PO PM 02/13/19 02/13/19 History spironolactone 200 mg PO DAILY 02/13/19 02/13/19 History Patient History Family History Other Diabetes Hypertension Social History Preferred Language: Northern Irish Communication Ability: Effective 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: No Beliefs That Will Affect Care: None Current Living Situation: Family Current Living Situation Comment: lives with son Other Information That Helps Us Care for You: No Feels Safe at Home: Yes Safety Concerns: Feels Safe At This Time Smoking Status: Former smoker Hx Alcohol Use: No Hx Substance Use: No Review of Systems Constitutional: + weakness Respiratory: no dyspnea Cardiovascular: + edema; no chest pain Gastrointestinal: no abdominal pain Physical Exam Constitutional: + ill appearing and + cachectic ENMT: external ear and nose normal, oropharynx normal Respiratory: normal respiratory effort, lungs clear to auscultation Auscultation: + diminished lung sounds Cardiovascular: Rate/Rhythm: regular rate and regular rhythm Extremities: + edema (trace BLE) Gastrointestinal (Abdomen): Inspection/Auscultation: + abdomen distended and normal bowel sounds Percussion/Palpation: + abdomen tender Neurologic: moves all extremities and awake Psychiatric: Orientation: oriented to person, oriented to place and oriented to time Insight: + poor insight Results & Data Vital Signs (Past 12 Hours) Vital Signs Temp Pulse Resp BP Pulse Ox 02/16/19 10:38 36.4 C L 82 22 95/53 L 98 02/16/19 07:15 36.3 C L 79 17 100/57 L 95 Time Spent Midlevel 70 minutes with >50% of the time spent at bedside with patient and on phone with family discussing condition and GOC.
[2019-02-16] MEDS: GABAPENTIN 600 MG TAB PO SCH (21:47)
[2019-02-16] MEDS: cefTRIAXone SODIUM 2,000 MG in DEXTROSE 5% 50 ML IV SCH (21:52)
[2019-02-17] MEDS: RASPBERRY SYRUP 5 ML UDP PO SCH ×5 (00:38→23:31)
[2019-02-17] MEDS: VANCOMYCIN HCL 250 MG/5 ML SOLN PO SCH ×5 (00:39→23:31)
[2019-02-17] MEDS: LORazepam 0.5 MG TAB PO PRN (00:39)
[2019-02-17] MEDS: D5W AND LACTATED RINGERS 1,000 ML IV SCH ×2 (02:50→14:08)
[2019-02-17] MEDS: LEVOTHYROXINE SODIUM 150 MCG TABLET PO SCH (05:23)
[2019-02-17] MEDS: INSULIN ASPART 100 UNITS/ML 3 ML PEN SC SCH ×4 (08:26→21:51)
[2019-02-17] MEDS: MIDODRINE HCL 2.5 MG TAB PO SCH ×3 (08:30→19:22)
[2019-02-17] MEDS: SPIRONOLACTONE 100 MG TAB PO SCH (08:31)
[2019-02-17] MEDS: FLUTICASONE PROPIONATE NA SPR 16 GM BTL SCH (08:32)
[2019-02-17] MEDS: DULOXETINE HCL 60 MG CAP PO SCH (08:32)
[2019-02-17] MEDS: FUROSEMIDE 40 MG TAB PO SCH (08:33)
[2019-02-17] MEDS: GABAPENTIN 300 MG CAP PO SCH ×2 (08:34→13:20)
[2019-02-17] MEDS: LANSOPRAZOLE 30 MG SOLTAB PO SCH ×2 (08:35→21:37)
[2019-02-17] MEDS: RIFAXIMIN 550 MG TABLET PO SCH ×2 (08:35→21:36)
[2019-02-17] MEDS: FLUTICASONE/SALMETEROL 250/50 (ADVAIR) 14 PUFF/1 INHALER INH SCH ×2 (08:52→21:35)
--- NOTE | 2019-02-17 09:31 | Hospitalist Progress Note ---
Date of Service February 17, 2019 Assessment & Plan (1) Spontaneous bacterial peritonitis: wbc in peritoneal fluid was elevated. culture negative but patient receiving antibiotics before cultures were drawn.. willl continue with ceftriaxone 2 gr IV daily for SBP. will monitor will restart diuretics and place on midodrine. (2) Leukocytosis: WBC continue to rise despite antibiotics. Patient was currently being treated for UTI with ceftriaxone 1 gr IV daily now on 2gr IV daily for SBP. Patient continues have leukocytosis. Procalcitonin is elevated. Removed almost 2 liters of ascitic fluid. The issue is that patient has received antibiotics so cultures may be falsely negative Gastro has been seeing patient and it appears patient has a poor prognosis due to cirrhosis and MELD score of 21. (3) C. difficile diarrhea: Placed on vanco 125 on 02/15 overnight. Increased to 250 overnight. (4) Acute kidney injury: This is a 70-year-old female with multiple comorbidities, her main issue is a cirrhosis. This admission is likely a complication of her cirrhosis. Patient was admitted because she had acute kidney injury. Her creatinine was above 2. Has improved to 1.7 (5) Rectal bleeding: new occurrence Hemoglobin has been relatively stable. (6) Cirrhosis: honestly she appears to be more of a palliative patient she has temporal muscle wasting, profoundly weak and the cirrhosis cannot be fixed unfortunately her son has unclear picture of how sick she really is unsure if it has been explained to him in [facility] system Informed son about poor prognosis. will obtain palliative care consult. (7) Hypotension: likely her baseline BP is in the 90-100 range will monitor closely no signs of shock, lactic acid is 1.4 on admission may consider adding midodrine. (8) Asthma: no wheezing, breathing stable on room air continue Advair (9) DM type 2 (diabetes mellitus, type 2): diabetic diet Novolog SS with correction factor 50, no carb coverage for now monitor for hypoglycemia (10) emt intermediate current use of anticoagulant: on Xarelto 20mg daily unclear if she has paroxysmal afib, VTE in past? hold Xarelto for now given rectal bleeding (11) UTI (urinary tract infection): with leukocytosis and some WBC in urine at [facility] antibiotics per above. (12) Hypothyroidism: Patient on levothyroxine 150 mg p.o. daily (13) CAD (coronary artery disease): Patient only takes carvedilol fenofibrate Xarelto. Currently medications are on hold due to rectal bleeding and low blood pressure (14) HTN (hypertension): BP has rito low. Will monitor (15) Neuropathy: Patient complaint of bilateral lower extremity pain. Patient cannot elaborate. Patient appears to be lethargic so will continue to monitor this and will hold off giving additional pain medication which could make patient more lethargic. Subjective Patient had multiple episodes of diarrhea overnight. Patient appears very drowsy and does not provide significant history. Review of Systems Review of Systems: All systems reviewed & are unremarkable except as noted in HPI & below Physical Exam Physical Exam: Constitutional: well developed, + cachectic (temporal muscle wasting), + frail appearing; Eyes: PERRL, conjunctivae normal, anicteric sclerae ENMT: external ear and nose normal, oropharynx normal Neck: trachea midline, no thyromegaly Respiratory: normal respiratory effort, lungs clear to auscultation (decreased in bases) Cardiovascular: Rate/Rhythm: regular rate and regular rhythm Heart Sounds: normal S1 and normal S2; no murmur Extremities: normal capillary refill and + edema Gastrointestinal (Abdomen): + abdomen distended, soft, + ascites and + tympanic to percussion; abdomen nontender Musculoskeletal: Head/Neck/Chest: normocephalic and head atraumatic Extremities: + limited ROM of extremities, + muscle atrophy Skin: no rashes, warm and dry Neurologic: patellar DTR's 2+ bilat, sensation intact and PERRL, EOMI, accommodation nl, no face palsy, no dysarthria Psychiatric: AA OX1 Lymphatic: no cervical or axillary lymphadenopathy Results & Data Vital Signs (Past 12 Hours) Vital Signs Temp Pulse Pulse Pulse Resp BP Pulse Ox 02/17/19 08:52 36.4 C L 77 18 146/78 H 98 02/17/19 04:50 36.5 C 82 17 131/72 97 02/17/19 00:15 36.5 C 80 16 122/63 98 02/17/19 00:00 82 02/16/19 23:23 82 PG Care Time/CCT Total # of Minutes Spent Total Time Spent with Patient: Total time spent is greater than 50% in coordination of care (as documented) at patient's floor/unit and/or counseling patient: (1) Cirrhosis Hepatic cirrhosis type: other cirrhosis Qualified Code(s): K74.69 - Other cirrhosis of liver
--- NOTE | 2019-02-17 09:44 | Gastroenterology Progress Note ---
Date of Service February 17, 2019 Assessment & Plan (1) C. difficile diarrhea: -Continue Vancomycin 125 mg po q 6 hrs -Contact precautions per protocol (2) Cirrhosis: With possible SBP. MELD at 21. s/p paracentesis on 02/15 with peritoneal WBCs >500. -Continue Ceftriaxone for possible SBP -Continue Xifaxan 550 mg BID -2 gm sodium restricted diet -Continue Lasix & Aldactone as tolerated in the setting of hypotension/infection -Given age and medical comorbidities, patient would not be an ideal candidate for hepatology interventions -Prognosis is poor; family not interested in hospice -Patient has outpatient GI resources in place at [facility]; still awaiting records from their office. Consider ID consult for worsening leukocytosis. Pending outcome, could also consider hematology eval. Call extension [phone] or [phone] with GI questions or concerns. Present on Admission?: Yes Supervising Physician Co-Signing Physician Notes I personally evaluated the patient and agree with the findings as documented by Berna Cardoso, PAC Exam: abd: soft, nt, nd Subjective Patient is a 79 yo chronically ill female being seen by GI for cirrhosis, questionable SBP, & C diff. The patient is alert today and tells me she is in the hospital. She denies pain. She frequently falls asleep during our conversation. Her WBC count continued to rise yesterday. Unfortunately, it appears blood cultures were not able to be completely obtained due to patient being a hard stick. She continues on Vancomycin po for her C diff. Son has declined hospice intervention. Patient appears to remain a full code. Review of Systems Review of Systems: Patient is able to tell me that she's in the hospital and she has no pain; she does not participate well with an ROS otherwise. Physical Exam Constitutional: + ill appearing Respiratory: normal respiratory effort Cardiovascular: Rate/Rhythm: regular rate and regular rhythm Gastrointestinal (Abdomen): Inspection/Auscultation: normal bowel sounds Percussion/Palpation: abdomen soft; abdomen nontender Psychiatric: Orientation: alert and oriented to place Results & Data Vital Signs (Past 12 Hours) Vital Signs Temp Pulse Pulse Pulse Resp BP Pulse Ox 02/17/19 08:52 36.4 C L 77 18 146/78 H 98 02/17/19 04:50 36.5 C 82 17 131/72 97 02/17/19 00:15 36.5 C 80 16 122/63 98 02/17/19 00:00 82 02/16/19 23:23 82 PG Care Time/CCT Total # of Minutes Spent Total Time Spent with Patient: Total time spent is greater than 50% in coordination of care (as documented) at patient's floor/unit and/or counseling patient: (1) Cirrhosis Hepatic cirrhosis type: other cirrhosis Qualified Code(s): K74.69 - Other cirrhosis of liver
--- NOTE | 2019-02-17 14:21 | Palliative Care Progress Note ---
Date of Service February 17, 2019 Assessment & Plan (1) Goals of care, counseling/discussion: -Patient moved to third floor. She is a little more drowsy today. No family at bedside. -No labs drawn today. She was seen by GI. They also report patient's prognosis as being quite poor. -Yesterday, henry's son stated to me that he wants to take patient home. I do not see how patient is going to be able to go straight home unless she has 24/7 care. She has not been out of bed. Would order PT/OT to see what their recommendations are and to see what patient is able to tolerate. I suspect she will not have a whole lot of rehab potential. -Based on how patient does in the next few days, may need to have another discussion with patient and family regarding her condition and goals. -Palliative care will continue to follow. (2) Cirrhosis: (3) Rectal bleeding: (4) Acute kidney injury: (5) Spontaneous bacterial peritonitis: Review of Systems Review of Systems: + weakness no dyspnea + edema; no chest pain no abdominal pain, +tenderness on palpation Physical Exam Constitutional: + ill appearing and + cachectic ENMT: external ear and nose normal, oropharynx normal Respiratory: normal respiratory effort, lungs clear to auscultation Auscultation: + diminished lung sounds Cardiovascular: Rate/Rhythm: regular rate and regular rhythm Extremities: + edema (trace BLE) Gastrointestinal (Abdomen): Inspection/Auscultation: + abdomen distended and normal bowel sounds Percussion/Palpation: + abdomen tender Neurologic: moves all extremities and awake Psychiatric: Orientation: oriented to person, oriented to place and oriented to time Insight: + poor insight Results & Data Vital Signs (Past 12 Hours) Vital Signs Temp Pulse Pulse Pulse Resp BP Pulse Ox 02/17/19 12:13 36.2 C L 02/17/19 11:01 35.6 C L 73 16 127/71 96 02/17/19 10:04 74 02/17/19 08:52 36.4 C L 77 18 146/78 H 98 02/17/19 04:50 36.5 C 82 17 131/72 97 Time Spent Midlevel 25 minutes with >50% of the time spent at bedside with patient discussing condition and plan of care. (1) Cirrhosis Hepatic cirrhosis type: other cirrhosis Qualified Code(s): K74.69 - Other cirrhosis of liver
[2019-02-17 15:26] LABS: Albumin Level 1.9 gm/dl (3.4-5.0); BUN Creatinine Ratio 32.5 (10-20); Calcium 8.5 mg/dl (8.5-10.1); Creatinine Clr Calc Pharmacy 23.7 ml/min; Est GFR (African American) 37.4; Est GFR (Non-African American) 32.3; Potassium 4.2 mmol/L (3.5-5.1)
[2019-02-17 15:29] LABS: Albumin Globulin Ratio 0.5 (0.9-2); Basophils # (auto) 0.02 K/uL (0-0.2); Basophils % (auto) 0.1 %; Bilirubin,Total 0.9 mg/dl (0.2-1); Echinocytes 1+; Eosinophils # (auto) 0.56 K/uL (0-0.5); Eosinophils % (auto) 1.9 %; Globulin 3.8 gm/dl (2.5-4.0); Hemoglobin 14.2 g/dL (12.0-16.0); Immature Granulocytes # (auto) 0.23 K/uL (0.00-0.02); Immature Granulocytes % (auto) 0.8 %; Lymphocytes # (auto) 1.06 K/uL (1.2-3.4); Lymphocytes % (auto) 3.5 %; Mean Corpuscular Hemoglobin 30.3 pg (25-34); Mean Corpuscular Hgb Conc 34.6 g/dL (32-36); Mean Corpuscular Volume 87.4 fL (80-100); Mean Platelet Volume 9.3 fL (7.4-10.4); Monocytes % (auto) 3.3 %; Neutrophils # (auto) 27.36 K/uL (1.4-6.5); Neutrophils % (auto) 90.4 %; Platelet Count 88 K/uL (130-400); RDW Coefficient of Variation 15.9 % (11.5-14.5); RDW Standard Deviation 50.1 fL (36.4-46.3); Red Blood Count 4.69 M/uL (4.2-5.4); Total Protein 5.7 gm/dl (6.4-8.2); White Blood Count 30.23 K/uL (4.8-10.8)
[2019-02-17 16:15] LABS: INR 1.3 (0.9-1.1); Prothrombin Time 12.7 Seconds (9.0-12.0)
[2019-02-17] MEDS: GABAPENTIN 600 MG TAB PO SCH (21:36)
[2019-02-17] MEDS: cefTRIAXone SODIUM 2,000 MG in DEXTROSE 5% 50 ML IV SCH (21:37)
[2019-02-18] MEDS: D5W AND LACTATED RINGERS 1,000 ML IV SCH (01:56)
[2019-02-18] MEDS: RASPBERRY SYRUP 5 ML UDP PO SCH ×4 (05:44→23:31)
[2019-02-18] MEDS: VANCOMYCIN HCL 250 MG/5 ML SOLN PO SCH ×4 (05:44→23:31)
[2019-02-18] MEDS: LEVOTHYROXINE SODIUM 150 MCG TABLET PO SCH (05:45)
[2019-02-18 06:58] LABS: Hematocrit (blood only) 43.4 % (37-47); Hemoglobin 14.5 g/dL (12.0-16.0); Mean Corpuscular Hemoglobin 29.4 pg (25-34); Mean Corpuscular Hgb Conc 33.4 g/dL (32-36); Mean Corpuscular Volume 87.9 fL (80-100); RDW Coefficient of Variation 16.2 % (11.5-14.5); RDW Standard Deviation 51.5 fL (36.4-46.3); Red Blood Count 4.94 M/uL (4.2-5.4)
[2019-02-18 07:07] LABS: Platelet Count 92 K/uL (130-400)
[2019-02-18 07:34] LABS: BUN Creatinine Ratio 32.4 (10-20); Calcium 8.5 mg/dl (8.5-10.1); Creatinine Clr Calc Pharmacy 27.7 ml/min; Est GFR (African American) 39.6; Est GFR (Non-African American) 34.2; Potassium 4.2 mmol/L (3.5-5.1)
[2019-02-18] MEDS: INSULIN ASPART 100 UNITS/ML 3 ML PEN SC SCH ×4 (08:40→22:02)
--- NOTE | 2019-02-18 09:04 | Hospitalist Progress Note ---
Date of Service February 18, 2019 Assessment & Plan (1) Spontaneous bacterial peritonitis: wbc in peritoneal fluid was elevated. culture negative but patient receiving antibiotics before cultures were drawn.. will continue with ceftriaxone 2 gr IV daily for SBP. will monitor Will continue diuretics and midodrine. (2) Leukocytosis: WBC improved to 24. Patient was currently being treated for UTI with ceftriaxone 1 gr IV daily now on 2gr IV daily for SBP. Patient continues have leukocytosis. Procalcitonin is elevated. Removed almost 2 liters of ascitic fluid. The issue is that patient has received antibiotics so cultures may be falsely negative Gastro has been seeing patient and it appears patient has a poor prognosis due to cirrhosis and MELD score of 21. (3) C. difficile diarrhea: Placed on vanco 125 on 02/15 overnight. Increased to 250 overnight. (4) Acute kidney injury: This is a 70-year-old female with multiple comorbidities, her main issue is a cirrhosis. This admission is likely a complication of her cirrhosis. Patient was admitted because she had acute kidney injury. Her creatinine was above 2. Has improved to 1.7 (5) Rectal bleeding: new occurrence Hemoglobin has been relatively stable. (6) Cirrhosis: honestly she appears to be more of a palliative patient she has temporal muscle wasting, profoundly weak and the cirrhosis cannot be fixed Son was not aware of how sick patient was. Informed son about poor prognosis. Son will like to take patient home with 24 hour care. Patient is not stable yet for discharge (7) Hypotension: resolved once midodrine was instituted. 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 hold Xarelto for now given rectal bleeding (11) UTI (urinary tract infection): with leukocytosis and some WBC in urine at [facility] antibiotics per above. (12) Hypothyroidism: Patient on levothyroxine 150 mg p.o. daily (13) CAD (coronary artery disease): Patient only takes carvedilol fenofibrate Xarelto. Currently medications are on hold due to rectal bleeding and low blood pressure (14) HTN (hypertension): BP has rito low. Will monitor (15) Neuropathy: Patient complaint of bilateral lower extremity pain. Patient cannot elaborate. Patient appears to be lethargic so will continue to monitor this and will hold off giving additional pain medication which could make patient more lethargic. Had discussion with Camacho over the phone, Explained that her temperature has been dropping. This does not appear to be a good sign. Explained to him that she likely only has weeks, not months to live. I also explained that there is a strong possibility she may not survive this hospital stay. Camacho showed understanding, he is agreeable to changing code status to DNR. (02/18) Subjective Patient is awake and appears confused during this encounter. Review of Systems Review of Systems: All systems reviewed & are unremarkable except as noted in HPI & below Physical Exam Physical Exam: Constitutional: well developed, + cachectic (temporal muscle wasting), + frail appearing; Eyes: PERRL, conjunctivae normal, anicteric sclerae ENMT: external ear and nose normal, oropharynx normal Neck: trachea midline, no thyromegaly Respiratory: normal respiratory effort, lungs clear to auscultation (decreased in bases) Cardiovascular: Rate/Rhythm: regular rate and regular rhythm Heart Sounds: normal S1 and normal S2; no murmur Extremities: normal capillary refill and + edema Gastrointestinal (Abdomen): + abdomen distended, soft, + ascites, abdomen nontender Musculoskeletal: Head/Neck/Chest: normocephalic and head atraumatic Extremities: + limited ROM of extremities, + muscle atrophy Skin: no rashes, warm and dry Neurologic: patellar DTR's 2+ bilat, sensation intact and PERRL, EOMI, accommodation nl, no face palsy, no dysarthria Psychiatric: AA OX1 Lymphatic: no cervical or axillary lymphadenopathy Results & Data Vital Signs (Past 12 Hours) Vital Signs Temp Pulse Pulse Resp BP Pulse Ox 02/18/19 08:09 34.6 C L 74 16 135/79 100 02/17/19 23:03 36.3 C L 75 16 117/77 97 PG Care Time/CCT Total # of Minutes Spent Total Time Spent with Patient: Total time spent is greater than 50% in coordination of care (as documented) at patient's floor/unit and/or counseling patient: (1) Cirrhosis Hepatic cirrhosis type: other cirrhosis Qualified Code(s): K74.69 - Other cirrhosis of liver
[2019-02-18] MEDS: FLUTICASONE/SALMETEROL 250/50 (ADVAIR) 14 PUFF/1 INHALER INH SCH ×2 (09:33→20:15)
[2019-02-18] MEDS: FLUTICASONE PROPIONATE NA SPR 16 GM BTL SCH (09:34)
[2019-02-18] MEDS: GABAPENTIN 300 MG CAP PO SCH ×2 (09:35→15:58)
[2019-02-18] MEDS: DULOXETINE HCL 60 MG CAP PO SCH (09:36)
[2019-02-18] MEDS: FUROSEMIDE 40 MG TAB PO SCH (09:36)
[2019-02-18] MEDS: RIFAXIMIN 550 MG TABLET PO SCH ×2 (09:37→20:14)
[2019-02-18] MEDS: SPIRONOLACTONE 100 MG TAB PO SCH (09:38)
[2019-02-18] MEDS: LANSOPRAZOLE 30 MG SOLTAB PO SCH ×2 (09:39→20:13)
[2019-02-18] MEDS: MIDODRINE HCL 2.5 MG TAB PO SCH ×3 (09:40→18:41)
--- NOTE | 2019-02-18 11:42 | Palliative Care Progress Note ---
Date of Service February 18, 2019 Assessment & Plan (1) Goals of care, counseling/discussion: -Met with patient in her room, she was lying flat. -Patient eyes were open and she said her feet hurt, but otherwise, was pretty confused during my encounter and full ROS was difficult to obtain. -Patients grand-daughter Tuyet, and grandson Sukumar was at the bedside, along with great grand-daughter Blanca. -Patient remains a Full Code -Pt was seen by GI yesterday. They also report patient's prognosis as being quite poor. -Dr. Funes spoke with the son on the phone this morning, and he said he would be coming in later this afternoon. it would be helpful to have a conversation with him regarding appropriate options for his mother. -Per the hospitalist, she is not stable for discharge unless, however, the family would be interested in hospice services. -I spoke with the patients grand-daughter who stated she has strong concerns about the care she would receive at home, even with hospice services which she does support. She said that she and her brother went to the home yesterday and the bed was soiled and appeared had not been cleaned for some time. -As previously stated, 24/7 care would need to be instituted if discharge to home was requested. Additionally, there may be some substance abuse concerns to have documented if home hospice was decided upon. -The hospitalist did order PT/OT this morning, but I am not certain that she would have good effort for participation in rehab. -There is not official POA paperwork and there are 3 adult children. The patients grand-daughter stated that her mother may have a better insight and be able to assist with the conversations. She did not have her phone number directly available. -Patients B/P has been stable now in the 120's systolic. -Based on how patient does in the next few days, may need to have another discussion with patient and family regarding her condition and goals. Appears that the patient may be entering the early slow active dying phase. -Palliative care will continue to follow. POLST form would be recommended prior to discharge if the patient remains stable for discharge. -PPS: 20% (2) Cirrhosis: (3) Rectal bleeding: (4) Acute kidney injury: (5) Spontaneous bacterial peritonitis: Subjective Patient eyes were open and she said her feet hurt, but otherwise, was pretty confused during my encounter and full ROS was difficult to obtain. Patients grand-daughter Tuyet, and grandson Sukumar was at the bedside, along with great grand-daughter Blanca. Patient remains a Full Code See A/P for further details. Review of Systems Review of Systems: Unobtainable due to cognitive status Physical Exam Constitutional: + ill appearing, + thin, + cachectic and + altered mental status Respiratory: normal respiratory effort, lungs clear to auscultation Cardiovascular: RRR, no murmur, no edema Gastrointestinal (Abdomen): normal bowel sounds, soft, nontender, no hepatosplenomegaly Skin: normal turgor, + crusts and + dry skin Psychiatric: Insight: + poor insight Judgement: + poor judgement Results & Data Vital Signs (Past 12 Hours) Vital Signs Temp Pulse Resp BP Pulse Ox 02/18/19 08:09 34.6 C L 74 16 135/79 100 PG Care Time/CCT Total # of Minutes Spent Total Time Spent with Patient: Total time spent is greater than 50% in coordination of care (as documented) at patient's floor/unit and/or counseling patient: 35 Time Spent Midlevel Total time spent 35 minutes with > 50% of that time assessing the patient, discussing goals of care with the patients family. (1) Cirrhosis Hepatic cirrhosis type: other cirrhosis Qualified Code(s): K74.69 - Other cirrhosis of liver
[2019-02-18] MEDS: GABAPENTIN 600 MG TAB PO SCH (20:14)
[2019-02-18] MEDS: cefTRIAXone SODIUM 2,000 MG in DEXTROSE 5% 50 ML IV SCH (21:47)
[2019-02-19] MEDS: VANCOMYCIN HCL 250 MG/5 ML SOLN PO SCH ×4 (06:06→23:48)
[2019-02-19] MEDS: RASPBERRY SYRUP 5 ML UDP PO SCH ×4 (06:06→23:48)
[2019-02-19] MEDS: LEVOTHYROXINE SODIUM 150 MCG TABLET PO SCH (06:07)
[2019-02-19] MEDS: GABAPENTIN 300 MG CAP PO SCH ×2 (08:22→14:15)
[2019-02-19] MEDS: FLUTICASONE/SALMETEROL 250/50 (ADVAIR) 14 PUFF/1 INHALER INH SCH ×2 (08:23→20:28)
[2019-02-19] MEDS: LANSOPRAZOLE 30 MG SOLTAB PO SCH ×2 (08:23→20:30)
[2019-02-19] MEDS: RIFAXIMIN 550 MG TABLET PO SCH ×2 (08:23→20:30)
[2019-02-19] MEDS: MIDODRINE HCL 2.5 MG TAB PO SCH ×3 (08:23→17:38)
[2019-02-19] MEDS: FUROSEMIDE 40 MG TAB PO SCH (08:24)
[2019-02-19] MEDS: FLUTICASONE PROPIONATE NA SPR 16 GM BTL SCH (08:24)
[2019-02-19] MEDS: SPIRONOLACTONE 100 MG TAB PO SCH (08:24)
[2019-02-19] MEDS: DULOXETINE HCL 60 MG CAP PO SCH (08:24)
[2019-02-19] MEDS: INSULIN ASPART 100 UNITS/ML 3 ML PEN SC SCH ×4 (09:07→20:59)
[2019-02-19] MEDS: ACETAMINOPHEN 325 MG TAB PO PRN (17:03)
[2019-02-19] MEDS ORDERED: MoRPHine SULFATE 5 MG/0.25 ML UDP PO PRN (18:23)
[2019-02-19] MEDS: GABAPENTIN 600 MG TAB PO SCH (20:29)
[2019-02-19] MEDS: cefTRIAXone SODIUM 2,000 MG in DEXTROSE 5% 50 ML IV SCH (21:30)
--- NOTE | 2019-02-19 23:03 | Hospitalist Progress Note ---
Date of Service February 19, 2019 Assessment & Plan (1) Spontaneous bacterial peritonitis: wbc in peritoneal fluid was elevated. culture negative but patient receiving antibiotics before cultures were drawn.. will continue with ceftriaxone 2 gr IV daily for SBP. Vitals have remained stable. Will continue diuretics and midodrine. (2) Leukocytosis: WBC improved to 24. Patient was currently being treated for UTI with ceftriaxone 1 gr IV daily now on 2gr IV daily for SBP. Patient continues have leukocytosis. Procalcitonin is elevated. Removed almost 2 liters of ascitic fluid. The issue is that patient has received antibiotics so cultures may be falsely negative Gastro has been seeing patient and it appears patient has a poor prognosis due to cirrhosis and MELD score of 21. (3) C. difficile diarrhea: Placed on vanco 125 on 02/15 overnight. Increased to 250 overnight. (4) Acute kidney injury: This is a 70-year-old female with multiple comorbidities, her main issue is a cirrhosis. This admission is likely a complication of her cirrhosis. Patient was admitted because she had acute kidney injury. Her creatinine was above 2. Has improved to 1.7 (5) Rectal bleeding: new occurrence Hemoglobin has been relatively stable. (6) Cirrhosis: honestly she appears to be more of a palliative patient she has temporal muscle wasting, profoundly weak and the cirrhosis cannot be fixed Son was not aware of how sick patient was. Informed son about poor prognosis. Son will like to take patient home with 24 hour care. Patient is not stable yet for discharge (7) Hypotension: resolved once midodrine was instituted. (8) Asthma: no wheezing, breathing stable on room air continue Advair (9) DM type 2 (diabetes mellitus, type 2): diabetic diet Novolog SS with correction factor 50, no carb coverage for now monitor for hypoglycemia (10) alf current use of anticoagulant: on Xarelto 20mg daily unclear if she has paroxysmal afib, VTE in past? hold Xarelto for now given rectal bleeding (11) UTI (urinary tract infection): with leukocytosis and some WBC in urine at [facility] antibiotics per above. (12) Hypothyroidism: Patient on levothyroxine 150 mg p.o. daily (13) CAD (coronary artery disease): Patient only takes carvedilol fenofibrate Xarelto. Currently medications are on hold due to rectal bleeding and low blood pressure (14) HTN (hypertension): BP has been low. Will monitor (15) Neuropathy: Patient complaint of bilateral lower extremity pain. Patient cannot elaborate. Patient appears to be lethargic so will continue to monitor this and will hold off giving additional pain medication which could make patient more lethargic. Had discussion with Camacho over the phone, Explained that her temperature has been dropping. This does not appear to be a good sign. Explained to him that she likely only has weeks, not months to live. I also explained that there is a strong possibility she may not survive this hospital stay. Camacho showed understanding, he is agreeable to changing code status to DNR. (02/18) Had discussion with Patient's sister, she would like patient discharge on home hospice. will need to talk with son as he is the one making decisions. May benefit from a family meeting early next week/ Subjective Patient reports no new symptoms. Review of Systems Review of Systems: All systems reviewed & are unremarkable except as noted in HPI & below Physical Exam Physical Exam: Constitutional: well developed, + cachectic (temporal muscle wasting), + frail appearing; Eyes: PERRL, conjunctivae normal, anicteric sclerae ENMT: external ear and nose normal, oropharynx normal Neck: trachea midline, no thyromegaly Respiratory: normal respiratory effort, lungs clear to auscultation (decreased in bases) Cardiovascular: Rate/Rhythm: regular rate and regular rhythm Heart Sounds: normal S1 and normal S2; no murmur Extremities: normal capillary refill and + edema Gastrointestinal (Abdomen): + abdomen distended, soft, + ascites, abdomen nontender Musculoskeletal: Head/Neck/Chest: normocephalic and head atraumatic Extremities: + limited ROM of extremities, + muscle atrophy Skin: no rashes, warm and dry Neurologic: patellar DTR's 2+ bilat, sensation intact and PERRL, EOMI, accommodation nl, no face palsy, no dysarthria Psychiatric: AA OX1 Lymphatic: no cervical or axillary lymphadenopathy Results & Data Vital Signs (Past 12 Hours) Vital Signs Temp Pulse Resp BP Pulse Ox 02/19/19 15:23 36.6 C 73 13 116/72 97 02/19/19 11:59 137/77 PG Care Time/CCT Total # of Minutes Spent Total Time Spent with Patient: Total time spent is greater than 50% in coordination of care (as documented) at patient's floor/unit and/or counseling patient: (1) Cirrhosis Hepatic cirrhosis type: other cirrhosis Qualified Code(s): K74.69 - Other cirrhosis of liver
[2019-02-20] MEDS: RASPBERRY SYRUP 5 ML UDP PO SCH ×4 (05:09→23:47)
[2019-02-20] MEDS: VANCOMYCIN HCL 250 MG/5 ML SOLN PO SCH ×4 (05:09→23:47)
[2019-02-20] MEDS: LEVOTHYROXINE SODIUM 150 MCG TABLET PO SCH (05:09)
[2019-02-20] MEDS: FLUTICASONE/SALMETEROL 250/50 (ADVAIR) 14 PUFF/1 INHALER INH SCH ×2 (09:02→20:47)
[2019-02-20] MEDS: GABAPENTIN 300 MG CAP PO SCH ×2 (09:03→13:55)
[2019-02-20] MEDS: FUROSEMIDE 40 MG TAB PO SCH (09:04)
[2019-02-20] MEDS: MIDODRINE HCL 2.5 MG TAB PO SCH ×3 (09:08→17:15)
[2019-02-20] MEDS: SPIRONOLACTONE 100 MG TAB PO SCH (09:09)
[2019-02-20] MEDS: LANSOPRAZOLE 30 MG SOLTAB PO SCH ×2 (09:09→20:49)
[2019-02-20] MEDS: RIFAXIMIN 550 MG TABLET PO SCH ×2 (09:09→20:50)
[2019-02-20] MEDS: DULOXETINE HCL 60 MG CAP PO SCH (09:09)
[2019-02-20] MEDS: FLUTICASONE PROPIONATE NA SPR 16 GM BTL SCH (09:10)
[2019-02-20] MEDS: INSULIN ASPART 100 UNITS/ML 3 ML PEN SC SCH ×4 (09:46→21:31)
[2019-02-20] MEDS: GABAPENTIN 600 MG TAB PO SCH (20:48)
--- NOTE | 2019-02-20 22:26 | Hospitalist Progress Note ---
Date of Service February 20, 2019 Assessment & Plan (1) Spontaneous bacterial peritonitis: wbc in peritoneal fluid was elevated. culture negative but patient receiving antibiotics before cultures were drawn.. will continue with ceftriaxone 2 gr IV daily for SBP. Vitals have remained stable. Will continue diuretics and midodrine. (2) Leukocytosis: WBC improved to 24. Patient was currently being treated for UTI with ceftriaxone 1 gr IV daily now on 2gr IV daily for SBP. Received 5th dose in 6 days. IV site blew on day and patient did not receive ceftriaxone. May consider stopping antibiotics after 5th dose of ceftriaxone, or may consider given a 6th dose. Or check ascitic fluid for WBC. 1. (3) C. difficile diarrhea: Placed on vanco vanco 250 mg started on 02/16 diarrhea has improved. (4) Acute kidney injury: This is a 70-year-old female with multiple comorbidities, her main issue is a cirrhosis. This admission is likely a complication of her cirrhosis. Patient was admitted because she had acute kidney injury. Her creatinine was above 2. Has improved to 1.4 (5) Rectal bleeding: new occurrence Hemoglobin has been relatively stable. (6) Cirrhosis: honestly she appears to be more of a palliative patient she has temporal muscle wasting, profoundly weak and the cirrhosis cannot be fixed Son was not aware of how sick patient was. Informed son about poor prognosis. Son will like to take patient home with 24 hour care. Camacho is now considering hospice. Will like to have discussion on Thursday to discuss home hospice options. (7) Hypotension: resolved once midodrine was instituted. (8) Asthma: no wheezing, breathing stable on room air continue Advair (9) DM type 2 (diabetes mellitus, type 2): diabetic diet Novolog SS with correction factor 50, no carb coverage for now monitor for hypoglycemia (10) alf current use of anticoagulant: on Xarelto 20mg daily unclear if she has paroxysmal afib, VTE in past? hold Xarelto for now given rectal bleeding (11) UTI (urinary tract infection): with leukocytosis and some WBC in urine at [facility] antibiotics per above. (12) Hypothyroidism: Patient on levothyroxine 150 mg p.o. daily (13) CAD (coronary artery disease): Patient only takes carvedilol fenofibrate Xarelto. Currently medications are on hold due to rectal bleeding and low blood pressure (14) HTN (hypertension): BP has been low. Will monitor (15) Neuropathy: Patient complaint of bilateral lower extremity pain. Patient cannot elaborate. Patient appears to be lethargic so will continue to monitor this and will hold off giving additional pain medication which could make patient more lethargic. Had discussion with Camacho over the phone, Explained that her temperature has been dropping. This does not appear to be a good sign. Explained to him that she likely only has weeks, not months to live. I also explained that there is a strong possibility she may not survive this hospital stay. Camacho showed understanding, he is agreeable to changing code status to DNR. (02/18) Had discussion with Patient's sister, she would like patient discharge on home hospice. Hd discussion with Camacho on Tuesday 02/20 Camacho is interested in home hospice services. Will need to have discussion with case management and palliative care on Thursday. Subjective 79 yo female is drowsy, does not provide much history today. Review of Systems Review of Systems: Unobtainable due to reduced consciousness Physical Exam Physical Exam: Constitutional: well developed, + cachectic (temporal muscle wasting), + frail appearing; Eyes: PERRL, conjunctivae normal, anicteric sclerae ENMT: external ear and nose normal, oropharynx normal Neck: trachea midline, no thyromegaly Respiratory: normal respiratory effort, lungs clear to auscultation (decreased in bases) Cardiovascular: Rate/Rhythm: regular rate and regular rhythm Heart Sounds: normal S1 and normal S2; no murmur Extremities: normal capillary refill and + edema Gastrointestinal (Abdomen): + abdomen distended, soft, + ascites, abdomen nontender Musculoskeletal: Head/Neck/Chest: normocephalic and head atraumatic Ex tremities: + limited ROM of extremities, + muscle atrophy Skin: no rashes, warm and dry Neurologic: patellar DTR's 2+ bilat, sensation intact and PERRL, EOMI, accommodation nl, no face palsy, no dysarthria Psychiatric: AA OX1 Lymphatic: no cervical or axillary lymphadenopathy Results & Data Vital Signs (Past 12 Hours) Vital Signs Temp Pulse Resp BP Pulse Ox 02/20/19 15:01 36.4 C L 78 18 134/85 95 PG Care Time/CCT Total # of Minutes Spent Total Time Spent with Patient: Total time spent is greater than 50% in coordination of care (as documented) at patient's floor/unit and/or counseling patient: (1) Cirrhosis Hepatic cirrhosis type: other cirrhosis Qualified Code(s): K74.69 - Other cirrhosis of liver
[2019-02-21] MEDS: cefTRIAXone SODIUM 2,000 MG in DEXTROSE 5% 50 ML IV SCH (01:16)
[2019-02-21] MEDS: RASPBERRY SYRUP 5 ML UDP PO SCH ×3 (06:26→17:30)
[2019-02-21] MEDS: VANCOMYCIN HCL 250 MG/5 ML SOLN PO SCH ×3 (06:26→17:30)
[2019-02-21 06:27] LABS: Basophils # (auto) 0.04 K/uL (0-0.2); Basophils % (auto) 0.2 %; Eosinophils # (auto) 0.25 K/uL (0-0.5); Eosinophils % (auto) 1.1 %; Hematocrit (blood only) 35.9 % (37-47); Immature Granulocytes # (auto) 0.18 K/uL (0.00-0.02); Immature Granulocytes % (auto) 0.8 %; Lymphocytes # (auto) 1.19 K/uL (1.2-3.4); Lymphocytes % (auto) 5.1 %; Mean Corpuscular Hgb Conc 33.4 g/dL (32-36); Mean Corpuscular Volume 86.7 fL (80-100); Mean Platelet Volume 8.9 fL (7.4-10.4); Monocytes # (auto) 2.01 K/uL (0.11-0.59); Monocytes % (auto) 8.6 %; Neutrophils # (auto) 19.61 K/uL (1.4-6.5); Neutrophils % (auto) 84.2 %; Platelet Count 129 K/uL (130-400); RDW Coefficient of Variation 15.8 % (11.5-14.5); Red Blood Count 4.14 M/uL (4.2-5.4); White Blood Count 23.28 K/uL (4.8-10.8)
[2019-02-21] MEDS: LEVOTHYROXINE SODIUM 150 MCG TABLET PO SCH (06:27)
[2019-02-21 07:00] LABS: BUN Creatinine Ratio 31.6 (10-20); Calcium 7.9 mg/dl (8.5-10.1); Est GFR (African American) 33.4; Est GFR (Non-African American) 28.8; Potassium 4.5 mmol/L (3.5-5.1)
[2019-02-21] MEDS: FLUTICASONE/SALMETEROL 250/50 (ADVAIR) 14 PUFF/1 INHALER INH SCH ×2 (08:51→20:28)
[2019-02-21] MEDS: GABAPENTIN 300 MG CAP PO SCH ×3 (08:52→13:07)
[2019-02-21] MEDS: DULOXETINE HCL 60 MG CAP PO SCH (08:52)
[2019-02-21] MEDS: RIFAXIMIN 550 MG TABLET PO SCH ×2 (08:53→20:50)
[2019-02-21] MEDS: FLUTICASONE PROPIONATE NA SPR 16 GM BTL SCH (08:53)
[2019-02-21] MEDS: FUROSEMIDE 40 MG TAB PO SCH (08:53)
[2019-02-21] MEDS: MIDODRINE HCL 2.5 MG TAB PO SCH ×3 (08:54→17:29)
[2019-02-21] MEDS: SPIRONOLACTONE 100 MG TAB PO SCH (08:54)
[2019-02-21] MEDS: INSULIN ASPART 100 UNITS/ML 3 ML PEN SC SCH ×4 (09:17→21:39)
[2019-02-21] MEDS: LANSOPRAZOLE 30 MG SOLTAB PO SCH ×2 (09:41→20:50)
--- NOTE | 2019-02-21 10:22 | Palliative Care Progress Note ---
Date of Service February 21, 2019 Assessment & Plan (1) Goals of care, counseling/discussion: -Patient is awake and oriented today. She c/o achiness in her legs and feet. -Patient has limited insight into her medical conditions, but she does state, "I just want to go home." -We talked about patient going home on hospice, she agrees this is what she'd like to do. I made it clear that hospice's goal is to care for people at home until the end of life. Patient again agreed this is what she would like to do. -Called patient's son, Camacho. NO answer and unable to leave voicemail. Will try again later. If Don presents to the bedside, please page palliative care. -Patient states she has no concerns about going home with Camacho, but agrees he will need some help. Other family members have concerns about patient's care at home, however patient is able to make decisions at this point. -Continue the Roxanol as needed. Has not had a dose since two days ago on 02/19. -Will work with case management on discharge plan. -Update: spoke with patient's daughter Sara Gilliland ([phone]). She states she does have concerns about her brother being able to handle all of patient's care. She confirmed that her aunt/patient's sister is going to help. Sara also understands that patient absolutely does not want to go to a [facility], so she is willing to give home hospice a try. Sara is a oil truck driver, so she is not always available to help. Sara will be at the bedside at 1pm-- I a [employer] immigration case worker to meet with her to choose a hospice agency. (2) Cirrhosis: (3) Rectal bleeding: (4) Acute kidney injury: (5) Spontaneous bacterial peritonitis: Subjective Patient awake and oriented today. No new complaints other than some mild pain in her legs and feet that she describes as "achiness" Continues to have diarrhea at times. Discussed plan, patient wants to go home on hospice with her son, Camacho. Review of Systems Review of Systems: + weakness no dyspnea no chest pain no abdominal pain, +tenderness on palpation no anxiety Physical Exam Constitutional: + ill appearing and + cachectic ENMT: external ear and nose normal, oropharynx normal Respiratory: normal respiratory effort, lungs clear to auscultation Auscultation: + diminished lung sounds Cardiovascular: Rate/Rhythm: regular rate and regular rhythm Extremities: + edema (trace BLE) Gastrointestinal (Abdomen): Inspection/Auscultation: + abdomen distended and normal bowel sounds Neurologic: moves all extremities and awake Psychiatric: Orientation: oriented to person, oriented to place and oriented to time Insight: + poor insight Results & Data Vital Signs (Past 12 Hours) Vital Signs Temp Pulse Pulse Resp BP Pulse Ox 02/21/19 07:37 36.2 C L 78 18 117/77 98 02/20/19 23:35 36.5 C 79 16 112/75 97 Time Spent Midlevel 40 minutes with >50% of the time spent at bedside with patient, on phone with family, discussing home hospice and plan of care; as well as collaborating with case management and physician to coordinate care. (1) Cirrhosis Hepatic cirrhosis type: other cirrhosis Qualified Code(s): K74.69 - Other cirrhosis of liver
--- NOTE | 2019-02-21 14:56 | Hospitalist Progress Note ---
Date of Service February 21, 2019 Assessment & Plan (1) Spontaneous bacterial peritonitis: wbc in peritoneal fluid was elevated. culture negative but patient receiving antibiotics before cultures were drawn.. will continue with ceftriaxone 2 gr IV daily for SBP. Vitals have remained stable. Will continue diuretics and midodrine. can change to PO antibiotics on discharge for a few more days (2) Leukocytosis: WBC still elevated likely from C diff colitis (3) C. difficile diarrhea: Placed on vanco 250 mg started on 02/16 diarrhea has improved. would treat for 14 days total, last day would be 03/02 (4) Acute kidney injury: resolved with IV fluids was due to dehydration (5) Rectal bleeding: new occurrence Hemoglobin has been relatively stable. no plans for endoscopy given frail status, hospice (6) Cirrhosis: end stage, exhibits severe malnutrition, weakness complicated with SBP, now with c diff patient agrees to hospice will go home with son Camacho and other family members will provide support chose [facility] hospice (7) Hypotension: resolved once midodrine was instituted. (8) Asthma: no wheezing, breathing stable on room air continue Advair (9) DM type 2 (diabetes mellitus, type 2): diabetic diet Novolog SS with correction factor 50, no carb coverage for now monitor for hypoglycemia (10) snf current use of anticoagulant: on Xarelto 20mg daily unclear if she has paroxysmal afib, VTE in past? hold Xarelto for now given rectal bleeding will not resume on d/c given plans for hospice (11) UTI (urinary tract infection): with leukocytosis and some WBC in urine at [place] completed a course of Rocephin (12) Hypothyroidism: Patient on levothyroxine 150 mg p.o. daily (13) CAD (coronary artery disease): can hold medications on discharge, goal is comfort (14) HTN (hypertension): BP has been low. Will monitor (15) Neuropathy: Patient complaint of bilateral lower extremity pain. Patient cannot elaborate. Patient appears to be lethargic so will continue to monitor this and will hold off giving additional pain medication which could make patient more lethargic. Plan: hospice at home on 02/22, family has chosen [facility] hospice Subjective patient laying in bed all day, very weak she was lethargic at the time of my exam and visit d/w palliative care Whitney Olguin, patient was more alert earlier today, told her that she wants to go home with her son palliative discussed plan with son and daughter, agree with home hospice arranging services, picking a provider, hoping will be ready tomorrow reviewed chart since last seen, appreciate changes that have been made the past week vitals stable WBC down slightly at 23k, Cr stable at 1.67 no growth on any cultures Review of Systems Review of Systems: Unobtainable due to cognitive status (more lethargic at time of my visit) Physical Exam Constitutional: well developed, + cachectic (temporal muscle wasting), + frail appearing, cooperative and + malnourished; not in distress and not diaphoretic Eyes: PERRL, conjunctivae normal, anicteric sclerae ENMT: external ear and nose normal, oropharynx normal Neck: trachea midline, no thyromegaly Respiratory: normal respiratory effort, lungs clear to auscultation (decreased in bases) Cardiovascular: Rate/Rhythm: regular rate and regular rhythm Heart Sounds: normal S1 and normal S2; no murmur Extremities: normal capillary refill and + edema Gastrointestinal (Abdomen): Inspection/Auscultation: + abdomen distended and normal bowel sounds Percussion/Palpation: abdomen soft, + ascites and + tympanic to percussion; abdomen nontender Musculoskeletal: Head/Neck/Chest: normocephalic and head atraumatic Extremities: + limited ROM of extremities, + abnormal strength (cannot stand, cannot transfer independently) and + muscle atrophy Skin: no rashes, warm and dry Neurologic: patellar DTR's 2+ bilat, sensation intact and PERRL, EOMI, accommodation nl, no face palsy, no dysarthria Psychiatric: Orientation: oriented to person and cooperative; + not alert (lethargic), + not oriented to place and + not oriented to time Lymphatic: no cervical or axillary lymphadenopathy Results & Data Vital Signs (Past 12 Hours) Vital Signs Temp Pulse Resp BP Pulse Ox 02/21/19 07:37 36.2 C L 78 18 117/77 98 Laboratory Results Laboratory Results - last 24 hr 02/20/19 02/20/19 02/21/19 17:21 20:46 05:57 WBC 23.28 H RBC 4.14 L Hgb 12.0 Hct 35.9 L MCV 86.7 MCH 29.0 MCHC 33.4 RDW Std Deviation 50.0 H RDW Coeff of Mariama 15.8 H Plt Count 129 L MPV 8.9 Immature Gran % (Auto) 0.8 Neut % (Auto) 84.2 Lymph % (Auto) 5.1 Monona % (Auto) 8.6 Eos % (Auto) 1.1 Baso % (Auto) 0.2 Immature Gran # (Auto) 0.18 H Neut # (Auto) 19.61 H Lymph # (Auto) 1.19 L Monona # (Auto) 2.01 H Eos # (Auto) 0.25 Baso # (Auto) 0.04 Sodium Potassium Chloride Carbon Dioxide Anion Gap BUN Creatinine Est Cr Clr Drug Dosing Est GFR ( Amer) Est GFR (Non-Af Amer) BUN/Creatinine Ratio Glucose POC Glucose 96 99 Calcium 02/21/19 02/21/19 02/21/19 05:57 08:01 12:04 WBC RBC Hgb Hct MCV MCH MCHC RDW Std Deviation RDW Coeff of Mariama Plt Count MPV Immature Gran % (Auto) Neut % (Auto) Lymph % (Auto) [place] % (Auto) Eos % (Auto) Baso % (Auto) Immature Gran # (Auto) Neut # (Auto) Lymph # (Auto) [place] # (Auto) Eos # (Auto) Baso # (Auto) Sodium 131 L Potassium 4.5 Chloride 103 Carbon Dioxide 19 L Anion Gap 9.0 BUN 53 H Creatinine 1.67 H Est Cr Clr Drug Dosing 24.0 Est GFR ( Amer) 33.4 Est GFR (Non-Af Amer) 28.8 BUN/Creatinine Ratio 31.6 H Glucose 98 POC Glucose 79 102 H Calcium 7.9 L Medications Administered Current Inpatient Medications Acetaminophen (Tylenol) 650 mg PO Q4H PRN PRN Reason: Pain or Fever Stop: 03/15/19 17:53 Last Admin: 02/19/19 17:03 Dose: 650 mg Documented by: Dextrose (Dextrose 50%) 25 - 50 ml IV UD PRN; Protocol PRN Reason: Hypoglycemia Protocol Stop: 03/15/19 20:29 Last Admin: 02/14/19 11:50 Dose: 25 ml Documented by: Duloxetine HCl (Cymbalta) 60 mg PO DAILY [facility] Stop: 03/16/19 08:59 Last Admin: 02/21/19 08:52 Dose: 60 mg Documented by: Fluticasone Propionate (Flonase) 1 sprays NA DAILY [place] Stop: 03/16/19 08:59 Last Admin: 02/21/19 08:53 Dose: 1 sprays Documented by: Furosemide (Lasix) 40 mg PO QAM [place] Stop: 03/18/19 09:44 Last Admin: 02/21/19 08:53 Dose: 40 mg Documented by: Gabapentin (Neurontin) 300 mg PO BID@0900,1400 [place] Stop: 03/16/19 08:59 Last Admin: 02/21/19 13:07 Dose: Not Given Documented by: Gabapentin (Neurontin) 600 mg PO HS [place] Stop: 03/15/19 20:59 Last Admin: 02/20/19 20:48 Dose: 600 mg Documented by: Glucagon (Glucagen) 1 mg IM UD PRN; Protocol PRN Reason: Hypoglycemia Protocol Stop: 03/15/19 20:29 Glucose (Glucose 40%) 15 - 30 gm PO UD PRN; Protocol PRN Reason: Hypoglycemia Protocol Stop: 03/15/19 20:29 Glucose (Dex4 Glucose) 4 - 8 tabs PO UD PRN; Protocol PRN Reason: Hypoglycemia Protocol Stop: 03/15/19 20:29 Ceftriaxone Sodium 2,000 mg/ (Dextrose) 70 mls @ 100 mls/hr IV Q24H [place]; Protocol Stop: 03/03/19 00:59 Last Infusion: 02/21/19 02:12 Dose: Infused Documented by: Insulin Aspart (Novolog Flexpen) 0 units SC ACHS [place] Stop: 03/15/19 20:59 Last Admin: 02/21/19 12:45 Dose: Not Given Documented by: Lansoprazole (Prevacid) 30 mg PO BID [place] Stop: 03/17/19 08:59 Last Admin: 02/21/19 09:41 Dose: 30 mg Documented by: Levothyroxine Sodium (Synthroid) 150 mcg PO DAILYBB [facility] Stop: 03/16/19 06:29 Last Admin: 02/21/19 06:27 Dose: 150 mcg Documented by: Lorazepam (Ativan) 0.5 mg PO Q12 PRN PRN Reason: Anxiety/Restlessness Stop: 03/15/19 17:53 Last Admin: 02/17/19 00:39 Dose: 0.5 mg Documented by: Midodrine (Proamatine) 5 mg PO TID@0800,1200,1700 [facility] Stop: 03/18/19 11:59 Last Admin: 02/21/19 12:55 Dose: 5 mg Documented by: Miscellaneous (Carbohydrates For Hypoglycemia) 15 - 30 gm PO UD PRN PRN Reason: Hypoglycemia Treatment Stop: 03/15/19 20:29 Last Admin: 02/18/19 08:19 Dose: 15 gm Documented by: Morphine Sulfate (Roxanol) 5 mg PO Q4H PRN PRN Reason: Pain Stop: 03/05/19 18:22 Last Admin: 02/19/19 21:30 Dose: 5 mg Documented by: Ondansetron HCl (Zofran) 4 mg IV Q6H PRN PRN Reason: Nausea Stop: 03/15/19 17:53 Raspberry (Raspberry) 5 ml PO Q6 [facility] Stop: 03/02/19 00:00 Last Admin: 02/21/19 12:55 Dose: 5 ml Documented by: Rifaximin (Xifaxan) 550 mg PO BID [facility] Stop: 03/18/19 10:59 Last Admin: 02/21/19 08:53 Dose: 550 mg Documented by: Fluticasone/Salmeterol (Advair Diskus 250/50) 1 puffs INH BID [facility] Stop: 03/15/19 20:59 Last Admin: 02/21/19 08:51 Dose: 1 puffs Documented by: Spironolactone (Aldactone) 100 mg PO QAM [facility] Stop: 03/18/19 09:44 Last Admin: 02/21/19 08:54 Dose: 100 mg Documented by: Vancomycin HCl (Vancomycin Hcl) 250 mg PO Q6 [facility] Stop: 02/26/19 11:59 Last Admin: 02/21/19 12:55 Dose: 250 mg Documented by: PG Care Time/CCT Total # of Minutes Spent Total Time Spent with Patient: Total time spent is greater than 50% in coordination of care (as documented) at patient's floor/unit and/or counseling patient: (1) Cirrhosis Hepatic cirrhosis type: other cirrhosis Qualified Code(s): K74.69 - Other cirrhosis of liver
[2019-02-21] MEDS: GABAPENTIN 600 MG TAB PO SCH (20:50)
[2019-02-22] MEDS: RASPBERRY SYRUP 5 ML UDP PO SCH ×3 (00:08→11:47)
[2019-02-22] MEDS: cefTRIAXone SODIUM 2,000 MG in DEXTROSE 5% 50 ML IV SCH ×2 (00:08→00:22)
[2019-02-22] MEDS: VANCOMYCIN HCL 250 MG/5 ML SOLN PO SCH ×3 (00:08→12:02)
[2019-02-22] MEDS: LEVOTHYROXINE SODIUM 150 MCG TABLET PO SCH (05:22)
[2019-02-22] MEDS: INSULIN ASPART 100 UNITS/ML 3 ML PEN SC SCH ×2 (08:28→12:41)
[2019-02-22] MEDS: FLUTICASONE/SALMETEROL 250/50 (ADVAIR) 14 PUFF/1 INHALER INH SCH (08:48)
[2019-02-22] MEDS: MIDODRINE HCL 2.5 MG TAB PO SCH ×2 (08:48→11:47)
[2019-02-22] MEDS: LANSOPRAZOLE 30 MG SOLTAB PO SCH (08:49)
[2019-02-22] MEDS: FUROSEMIDE 40 MG TAB PO SCH (08:49)
[2019-02-22] MEDS: SPIRONOLACTONE 100 MG TAB PO SCH (08:50)
[2019-02-22] MEDS: RIFAXIMIN 550 MG TABLET PO SCH (08:50)
[2019-02-22] MEDS: GABAPENTIN 300 MG CAP PO SCH ×2 (08:50→14:38)
[2019-02-22] MEDS: DULOXETINE HCL 60 MG CAP PO SCH (08:50)
[2019-02-22] MEDS: FLUTICASONE PROPIONATE NA SPR 16 GM BTL SCH (08:51)
--- NOTE | 2019-02-22 11:37 | Palliative Care Progress Note ---
Date of Service February 22, 2019 Assessment & Plan (1) Goals of care, counseling/discussion: -Referral made to [facility] hospice. Patient should be able to be discharged home today. Case management following. -Has Roxanol ordered. Would send script upon discharge. -Please contact us with any further palliative care needs. Will sign off. (2) Cirrhosis: (3) Rectal bleeding: (4) Acute kidney injury: (5) Spontaneous bacterial peritonitis: Subjective Patient is tired today, but still oriented x4. No new complaints. Review of Systems Review of Systems: + weakness no dyspnea no chest pain no abdominal pain, +tenderness on palpation no anxiety Physical Exam Constitutional: + ill appearing and + cachectic ENMT: external ear and nose normal, oropharynx normal Respiratory: normal respiratory effort, lungs clear to auscultation Auscultation: + diminished lung sounds Cardiovascular: Rate/Rhythm: regular rate and regular rhythm Extremities: + edema (trace BLE) Gastrointestinal (Abdomen): Inspection/Auscultation: + abdomen distended (more distended and slightly firm today) and normal bowel sounds Percussion/Palpation: + abdomen tender Neurologic: moves all extremities and awake Psychiatric: Orientation: oriented to person, oriented to place and oriented to time Results & Data Vital Signs (Past 12 Hours) Vital Signs Temp Pulse Resp BP Pulse Ox 02/22/19 11:15 36.3 C L 72 17 124/71 99 02/22/19 07:57 36.4 C L 73 18 115/74 100 02/22/19 07:28 35.3 C L 73 115/64 100 Time Spent Midlevel 25 minutes with >50% of the time spent at bedside with patient and IDT discussing plan of care (1) Cirrhosis Hepatic cirrhosis type: other cirrhosis Qualified Code(s): K74.69 - Other cirrhosis of liver
[2019-02-22] MEDS: ACETAMINOPHEN 325 MG TAB PO PRN (15:44)
--- NOTE | 2019-02-22 17:18 | Discharge Summary ---
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 Majority of the recent history obtained from records from the ED as well as from her son at the bedside. She is not a permanent resident of a SNF, she normally lives with her son. She has been in a SNF due to weakness and need for rehab, she went there over a week ago after being hospitalized at [facility]. Prior to this visit all her care has been at [facility] with the [facility] system. The son knows that she has cirrhosis due to fatty liver disease. She has had numerous paracentesis in the past as well as right sided thoracentesis for pleural effusion likely related to the cirrhosis. He says that the patient was doing very poorly the past few weeks. She has been getting weaker, not eating well, not drinking much. He said her care was inadequate at the SNF in his opinion and he was going to get her out of the SNF this morning and take her home but she had reported rectal bleeding. He says that over the past year her health has declined, in the past few months it has dramatically declined. He says he is not ready to lose his mom and he gets choked up talking about it. Asked why he requested a transfer to [facility] since her care has always been at [facility] and he said he wanted her to have best care possible, was not pleased with the care she had with [facility]. She has no history of GI bleeding at least to the son's knowledge. The patient denies any abdominal pain and she never vomited. She c/o pain in her backside related to some sacral wounds. She denies any chest pain/pressure, denies dyspnea, denies fever/chills. She admits that she does not eat or drink much, very poor appetite. She was hypotensive in the ED at [facility]. She was given a one liter bolus. She had a leukocytosis, Hb was 11, Cr was up at 2 compared to baseline of 1, Na down at 129. CT head was normal. Possible UTI on UA, culture was sent. They requested transfer to [facility]. I requested that she be evaluated in the ED, unsure if she would need ICU or PCU. Once here in our ED her BP was improved in the 90-100 systolic range. It was clear that she was cirrhotic, likely pressures always low. She was in no distress. Lactic acid was normal, Hb was 10. She was deemed appropriate for PCU status and was admitted. Principal Diagnosis End stage cirrhosis Discharge Exam Constitutional well developed, + cachectic (temporal muscle wasting), + frail appearing, cooperative and + malnourished; not in distress and not diaphoretic Eyes PERRL, conjunctivae normal, anicteric sclerae ENMT external ear and nose normal, oropharynx normal Neck trachea midline, no thyromegaly Respiratory normal respiratory effort, lungs clear to auscultation (decreased in bases) Cardiovascular Rate/Rhythm: regular rate and regular rhythm Heart Sounds: normal S1 and normal S2; no murmur Extremities: normal capillary refill and + edema Gastrointestinal (Abdomen) Inspection/Auscultation: + abdomen distended and normal bowel sounds Percussion/Palpation: abdomen soft, + ascites and + tympanic to percussion; abdomen nontender Musculoskeletal Head/Neck/Chest: normocephalic and head atraumatic Extremities: + limited ROM of extremities, + abnormal strength (cannot stand, cannot transfer independently) and + muscle atrophy Skin no rashes, warm and dry Neurologic patellar DTR's 2+ bilat, sensation intact and PERRL, EOMI, accommodation nl, no face palsy, no dysarthria Psychiatric Orientation: alert (lethargic), oriented x 3 and cooperative Cognition: + recent memory not intact Estimated Intelligence: + below average estimated intelligence Lymphatic no cervical or axillary lymphadenopathy Discharge Data Allergies Allergy/AdvReac Type Severity Reaction Status Date / Time anastrozole [From Arimidex] Allergy Unknown FAMILY Verified 02/13/19 15:44 UNSURE OF REACTION atorvastatin [From Lipitor] Allergy Unknown FAMILY Verified 02/13/19 15:44 UNSURE OF REACTION metformin Allergy Unknown FAMILY Verified 02/13/19 15:44 UNSURE OF REACTION oxycodone Allergy Unknown FAMILY Verified 02/13/19 15:44 UNSURE OF REACTION pantoprazole [From Protonix] Allergy Unknown FAMILY Verified 02/13/19 15:44 UNSURE OF REACTION rosuvastatin [From Crestor] Allergy Unknown FAMILY Verified 02/13/19 15:44 UNSURE OF REACTION simvastatin [From Zocor] Allergy Unknown FAMILY Verified 02/13/19 15:44 UNSURE OF REACTION ticagrelor [From Brilinta] Allergy Unknown FAMILY Verified 02/13/19 15:44 UNSURE OF REACTION Consultations 02/13/19 17:54 Consult Case Management - Discharge Planning Routine Consult Gastroenterology Routine 02/15/19 10:50 Consult Palliative Care Routine Ordered Studies 02/14/19 08:16 US abdomen ltd ascites Routine 02/15/19 12:13 US paracentesis abd w/image Urgent Hospital Course (1) Spontaneous bacterial peritonitis: wbc in peritoneal fluid was elevated. culture negative but patient receiving antibiotics before cultures were drawn.. treated with Ceftriaxone while admitted, received one week of treatment no pain in abdomen on discharge no further antibiotics planned (2) Leukocytosis: WBC still elevated but trending down likely from C diff colitis (3) C. difficile diarrhea: Placed on vanco 250 mg started on 02/16 diarrhea has improved. would treat for 14 days total, last day would be 03/02 d/c home with one more week of Vanco (4) Acute kidney injury: resolved with IV fluids was due to dehydration (5) Rectal bleeding: new occurrence Hemoglobin has been relatively stable. no plans for endoscopy given frail status, hospice (6) Cirrhosis: end stage, exhibits severe malnutrition, weakness complicated with SBP, now with c diff patient agrees to hospice will go home with son Camacho and other family members will provide support chose [facility] (7) Hypotension: resolved once midodrine was instituted. 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 hold Xarelto for now given rectal bleeding will not resume on d/c given plans for hospice (11) Hypothyroidism: Patient on levothyroxine 150 mg p.o. daily (12) CAD (coronary artery disease): can hold medications on discharge, goal is comfort (13) HTN (hypertension): BP has been low. Will monitor (14) Neuropathy: Patient complaint of bilateral lower extremity pain. Patient cannot elaborate. Patient appears to be lethargic so will continue to monitor this and will hold off giving additional pain medication which could make patient more lethargic. Plan: hospice at home on 02/22, family has chosen [facility] Total Time Total Time Spent Total Time Spent (In Minutes): 32 minutes Total Time Includes: Examination of the Patient, Discharge Planning, Medication Reconciliation, Communication With Other Providers (case management) and Other (communication with family) Discharge Plan Discharge Items Patient Disposition: Hospice - Home Reason For Visit: MARILYN, CIRRHOSIS, RECTAL BLEEDING Discharge Diagnosis: Cirrhosis, end stage Spontaneous bacterial peritonitis C diff colitis Acute kidney injury Rectal bleeding Severe protein calorie malnutrition Condition on Discharge: Fair Goals: provide comfort care at home treat symptoms Activity: Per Instructions section Bathing: No limitations Non-emergency contact: Primary Care Provider and Director Machine Call non-emergency contact if: you have any medication questions, your symptoms worsen, your pain is not controlled and you have a fever Follow-up/Referrals: PCP,NO [Primary Care Provider] - Diet: Regular Addtl Attending Provider Instructions: Medications: - MORPHINE: use as needed for any pain or shortness of breath - MIDODRINE: 5mg three times a day to help keep blood pressure up - SPIRONOLACTONE: dose reduced to 100mg - PREVACID: 30mg twice a day - VANCOMYCIN: 125mg four times a day for the next 7 days to complete treatment of C diff - RIFAXIMIN: take twice a day, helps keep ammonia levels low in setting of cirrhosis Medications edited to continue only those that are needed Goal is to keep patient comfortable, keep at home, only return to hospital if you cannot be comfortable at home Please use hospice as resource for any questions or concerns Pending Studies at Discharge: No Stand-Alone Forms: My [facility] Medications and DC Order Prescriptions: New spironolactone 100 mg Tablet 100 mg PO QAM 30 Days Qty: 30 RF: 1 midodrine 2.5 mg Tablet 5 mg PO TID@0800,1200,1700 30 Days Qty: 90 RF: 1 Xifaxan 550 mg Tablet 550 mg PO BID 30 Days Qty: 60 RF: 1 lansoprazole [Prevacid SoluTab] 30 mg Tablet,Disintegrat, Delay Rel 30 mg PO BID 30 Days Qty: 60 RF: 1 vancomycin [Vancocin] 125 mg capsule 125 mg PO Q6H 7 Days Qty: 28 RF: 0 morphine concentrate 100 mg/5 mL (20 mg/mL) Solution 5 mg PO Q4H PRN (Reason: pain) Qty: 120 RF: 0 Continued furosemide [Lasix] 40 mg Tablet 40 mg PO DAILY RF: 0 fluticasone propion-salmeterol [Advair Diskus] 250-50 mcg/dose Blister With Device 1 inh INHALATION BID RF: 0 gabapentin 600 mg Tablet 600 mg PO HS RF: 0 lorazepam [Ativan] 0.5 mg Tablet 0.5 mg PO Q12 PRN (Reason: Anxiety/Restlessness) RF: 0 levothyroxine 150 mcg Tablet 150 mcg PO DAILY RF: 0 nitroglycerin [Nitrostat] 0.4 mg Tablet, Sublingual 0.4 mg sublingual DIRECTED PRN (Reason: Chest Pain) RF: 0 docusate sodium 100 mg Capsule 100 mg PO BID RF: 0 gabapentin 300 mg Capsule 300 mg PO BID RF: 0 diphenhydramine-acetaminophen [Tylenol PM Extra Strength] 25-500 mg Tablet 2 tab PO HS PRN (Reason: Insomnia) RF: 0 fluticasone propionate [Flonase Allergy Relief] 50 mcg/actuation [place],Suspension 1 spray INTRANASAL DAILY RF: 0 loratadine 10 mg Tablet 10 mg PO DAILY PRN (Reason: Allergy Symptoms) RF: 0 duloxetine [Cymbalta] 60 mg Capsule,Delayed Release(Dr/Ec) 60 mg PO DAILY RF: 0 acetaminophen [Tylenol] 325 mg Capsule 650 mg PO Q4 PRN (Reason: Fever Or Pain) RF: 0 diclofenac sodium [Voltaren] 1 % Gel 2 g TOPICAL BID PRN (Reason: SHOULDER PAIN) RF: 0 Discontinued potassium chloride 10 mEq Capsule, Extended Release 10 meq PO DAILY RF: 0 carvedilol 6.25 mg Tablet 3.125 mg PO BID RF: 0 spironolactone 100 mg Tablet 200 mg PO DAILY RF: 0 cyanocobalamin (vitamin B-12) 1,000 mcg/mL Solution 1,000 mcg IM MONTHLY RF: 0 fenofibrate nanocrystallized 145 mg Tablet 145 mg PO DAILY RF: 0 calcium carbonate-vitamin D3 [Calcium 600 + D(3)] 600 mg(1,500mg) -400 unit Tablet 1 tab PO DAILY RF: 0 Xarelto 20 mg Tablet 20 mg PO PM RF: 0 Discharge Orders: Discharge Order (Routine); Ordered 02/22/19 Ordered By: Art Mccabe/Other Patient Handouts: Eat Healthy, Cirrhosis, Injury Acute Kidney Dc, Infec Clostridium Difficile Admission Data Admit Date/Time: 02/13/19 15:35 Attending Provider: Art Henao Admit Provider: Art Henao Primary Care Provider: PCP,NO Other Providers: Wil Dorsey ; Eloisa Jacobo Other Interventions: Discharge Summary Assessment (RN) Last Done: 02/22/19 13:40 DC Date/Time DO NOT enter until pt leaves facility: 02/22/19 16:40
== END 2019-02-22 16:40 | disposition hospice, home (50) | DRG 432 ==
LOC: ED 14:54 → 2E 15:35 → SUATTDRO 15:35 → 2E 17:29 → 3N 02-17 10:55